=== PATIENT | female | born 1940 | race Two or more races ===

== ENCOUNTER 2023-09-06 15:27 | Inpatient (IN) | payer MEDICARE, MEDICAID ==
[~2023-09-06] VITALS: Ht 157.5 cm; Wt 50.3 kg
[2023-09-06 16:01] LABS: Basophils # (auto) 0.1 10 ^3/uL (0-0.2); Basophils % (auto) 0.8 % (0.0-2.0); Eosinophils # (auto) 0.1 10 ^3/uL (0-0.8); Eosinophils % (auto) 1.3 % (0.0-7.0); Hematocrit 37.6 % (36.0-46.0); Hemoglobin 12.7 g/dL (12.2-16.2); Lymphocytes # (auto) 1.8 10 ^3/uL (0.4-5.4); Lymphocytes % (auto) 22.6 % (10.0-50.0); Mean Corpuscular Hemoglobin 33.3 pg (28.0-32.0); Mean Corpuscular Hgb Conc. 33.9 g/dL (32.0-36.0); Mean Corpuscular Volume 98.3 fL (80.0-100.0); Monocytes # (auto) 0.4 10 ^3/uL (0-1.3); Monocytes % (auto) 5.3 % (0.0-12.0); Neutrophils # (auto) 5.6 10 ^3/uL (1.6-8.6); Nucleated Red Blood Cells % 0.2 %; Red Blood Cells 3.82 10^6/uL (4.0-5.20); Red Cell Distribution Width 14.5 % (11.8-14.3)
[2023-09-06 16:36] LABS: Alanine Aminotransferase 12 U/L (7-40); Albumin 4.6 g/dL (3.2-4.8); Alkaline Phosphatase 75 U/L (46-116); Anion Gap 11 (5-15); Aspartate Aminotransferase 19 U/L (13-40); BUN/Creatinine Ratio 7.1 (10.0-20.0); Blood Urea Nitrogen 6 mg/dL (9-23); Calcium 9.8 mg/dL (8.7-10.4); Carbon Dioxide 20 mmol/L (20-30); Chloride 106 mmol/L (98-107); Glucose 138 mg/dL (74-106); Potassium 3.5 mmol/L (3.5-5.1); Sodium 137 mmol/L (136-145)
[2023-09-06 16:37] LABS: Bilirubin, Total 0.7 mg/dL (0.2-1.0); Total Protein 7.8 g/dL (5.7-8.2)
[2023-09-06] MEDS ORDERED: ONDANSETRON HCL 4 MG/2 ML VIAL IV ONE ×2 (18:30→22:30)
[2023-09-06] MEDS ORDERED: MORPHINE SULFATE INJ 2 MG/ml SYRG IV ONE (18:30)
[2023-09-06] MEDS ORDERED: SODIUM CHLORIDE 0.9% 1,000 ML IV ONE (18:30)
[2023-09-06 19:30] VITALS: PULSE 63; RESP 18; O2SAT 100
[2023-09-06] MEDS ORDERED: ASPirin 81 mg TAB PO ONE (20:30)
[2023-09-06] MEDS ORDERED: ONDANSETRON ODT 4 MG TAB PO ONE (22:00)
[2023-09-06] MEDS ORDERED: MORPHINE SULFATE 4 MG/ML SYR/VIAL IV ONE (22:30)
[2023-09-06] MEDS ORDERED: ONDANSETRON HCL 4 MG/2 ML VIAL IV PRN (23:30)
[2023-09-06] MEDS ORDERED: HYDROcodone-ACET 5/325MG TAB PO PRN (23:30)
[2023-09-06] MEDS ORDERED: DOCUSATE SOD 100 MG CAP PO PRN (23:30)
[2023-09-06] MEDS ORDERED: MORPHINE SULFATE INJ 2 MG/ml SYRG IV PRN (23:30)
[2023-09-06] MEDS ORDERED: ACETAMINOPHEN 325 MG TAB PO PRN (23:30)
[2023-09-06] MEDS ORDERED: NITROGLYCERIN 0.4 MG SL TAB SL PRN (23:30)
[2023-09-07] MEDS ORDERED: ENOXAPARIN SOD 60 MG/0.6 ML SYRINGE SC ONE ×2 (00:30)
[2023-09-07] MEDS: SODIUM CHLORIDE 0.9% 1,000 ML IV SCH ×2 (00:55→16:33)
[2023-09-07 06:24] LABS: Basophils # (auto) 0 10 ^3/uL (0-0.2); Basophils % (auto) 0.6 % (0.0-2.0); Eosinophils # (auto) 0.1 10 ^3/uL (0-0.8); Eosinophils % (auto) 1.9 % (0.0-7.0); Hematocrit 31.6 % (36.0-46.0); Hemoglobin 10.9 g/dL (12.2-16.2); Lymphocytes # (auto) 1.5 10 ^3/uL (0.4-5.4); Mean Corpuscular Hemoglobin 33.1 pg (28.0-32.0); Mean Corpuscular Hgb Conc. 34.5 g/dL (32.0-36.0); Monocytes # (auto) 0.4 10 ^3/uL (0-1.3); Monocytes % (auto) 6.6 % (0.0-12.0); Neutrophils # (auto) 4.1 10 ^3/uL (1.6-8.6); Neutrophils % (auto) 66.9 % (37.0-80.0); Red Blood Cells 3.29 10^6/uL (4.0-5.20); Red Cell Distribution Width 14.4 % (11.8-14.3); White Blood Cell 6.1 10^3/uL (4.4-10.8)
[2023-09-07 06:36] LABS: Alanine Aminotransferase 82 U/L (7-40); Alkaline Phosphatase 105 U/L (46-116); BUN/Creatinine Ratio 9.7 (10.0-20.0); Blood Urea Nitrogen 7 mg/dL (9-23); Calcium 8.9 mg/dL (8.7-10.4); Carbon Dioxide 24 mmol/L (20-30); Glucose 100 mg/dL (74-106)
[2023-09-07 06:37] LABS: Aspartate Aminotransferase 107 U/L (13-40)
[2023-09-07 06:38] LABS: Albumin 3.8 g/dL (3.2-4.8); Bilirubin, Total 1.2 mg/dL (0.2-1.0); Total Protein 6.5 g/dL (5.7-8.2)
[2023-09-07 06:44] LABS: Anion Gap 7 (5-15); Chloride 109 mmol/L (98-107); Potassium 3.7 mmol/L (3.5-5.1); Sodium 140 mmol/L (136-145)
[2023-09-07 09:07] VITALS: PULSE 72; RESP 12; O2SAT 95
[2023-09-07] MEDS: ASPirin 81 mg TAB PO SCH (10:00)
[2023-09-07] MEDS ORDERED: FAMOTIDINE (10MG/ML) 2ML VL IV SCH (10:00)
[2023-09-07] MEDS: CARVEDILOL 3.125 MG TAB PO SCH ×2 (10:00→22:16)
[2023-09-07] MEDS ORDERED: CLOPIDOGREL BISULFATE 75 MG TAB PO SCH (11:00)
[2023-09-07 11:18] LABS: Triglycerides 108 mg/dL (< 150)
[2023-09-07 11:19] LABS: LDL Cholesterol 37 mg/dL (< 100)
[2023-09-07 11:20] LABS: Cholesterol 102 mg/dL (< 200); HDL Cholesterol 45 mg/dL (40-59)
[2023-09-07 11:59] LABS: Urine Amorphous Crystal FEW /hpf (None Seen); Urine Bacteria NONE SEEN /hpf (None Seen); Urine Blood Negative /uL (Negative); Urine Budding Yeast MANY /hpf (None Seen); Urine Clarity HAZY (Clear); Urine Color Yellow (Yellow); Urine Protein, UAD Negative (Negative); Urine Specific Gravity 1.013 (1.001-1.035); Urine Urobilinogen Normal (Negative); Urine WBC 86 /hpf (0 - 5)
[2023-09-07 19:25] VITALS: RESP 16; O2SAT 99
[2023-09-07] MEDS ORDERED: ATORVASTATIN 20 MG TAB PO SCH (22:00)
[2023-09-07] MEDS ORDERED: LORazepam 2MG/ML-1ML VIAL IV ONE (23:15)
[2023-09-07] MEDS ORDERED: diphenhdrAMINE HCL 50 MG/1 ML VL IV ONE (23:15)
[2023-09-07] MEDS ORDERED: LORazepam 2MG/ML-1ML VIAL IM ONE (23:30)
[2023-09-07] MEDS ORDERED: diphenhdrAMINE HCL 50 MG/1 ML VL IM ONE (23:30)
[2023-09-08] MEDS: levoFLOXacin 500 MG TAB PO SCH ×3 (06:13→10:19)
[2023-09-08] MEDS: SODIUM CHLORIDE 0.9% 1,000 ML IV SCH (09:17)
[2023-09-08] MEDS ORDERED: HALOPERIDOL LACTATE 5 MG/ML INJ VIAL IM PRN (09:45)
[2023-09-08] MEDS: ASPirin 81 mg TAB PO SCH (10:19)
[2023-09-08] MEDS: CARVEDILOL 3.125 MG TAB PO SCH (10:22)
[2023-09-08 11:29] LABS: Erythrocyte Sedimentation Rate 36 mm/hr (0-20)
[2023-09-08 11:38] LABS: Folate (Folic Acid) 11.2 ng/mL (>5.38)
[2023-09-08 11:39] LABS: Free T4 (Free Thyroxine) 1.2 ng/dL (0.89-1.76)
[2023-09-08] MEDS ORDERED: AMIL5TAB24 PO (11:46)
[2023-09-08] MEDS ORDERED: CARV12.544 PO (11:46)
[2023-09-08] MEDS ORDERED: NIFE1TAB30 PO (11:46)
[2023-09-08] MEDS ORDERED: ASPI-717 PO (11:46)
[2023-09-08] MEDS ORDERED: LOSA25TA15 PO (11:46)
[2023-09-08] MEDS ORDERED: LEVO75TA6 PO (11:46)
[2023-09-08] MEDS ORDERED: ATOR40TA52 PO (11:46)
[2023-09-08 12:38] VITALS: PULSE 78; RESP 18; O2SAT 97
[2023-09-08] MEDS: CARVEDILOL 12.5 MG TAB PO SCH ×2 (13:00→22:09)
[2023-09-08] MEDS ORDERED: hydrALAZINE HCL 20 MG/ML VL IV PRN (13:00)
[2023-09-08] MEDS: NIFEdipine ER 30 MG TAB PO SCH (13:00)
[2023-09-08 19:25] VITALS: PULSE 97; RESP 18; O2SAT 95
[2023-09-08 22:00] VITALS: BP 146/73; PULSE 89; RESP 18; TEMP 98.2; O2SAT 97
[2023-09-08 22:04] VITALS: BP_SYST 135; BP_SYST 146; BP_DIAS 67; BP_DIAS 73; PULSE 76; PULSE 89; RESP 16; RESP 18; TEMP 36.3; O2SAT 96; O2SAT 97
[2023-09-08] MEDS: ATORVASTATIN 20 MG TAB PO SCH (22:10)
[2023-09-09] VITALS (7 sets, daily range): BP systolic 110–129; BP diastolic 57–72; PULSE 73–82; RESP 16–19; TEMP 97.8–98.5; O2SAT 96–99
[2023-09-09] MEDS: LEVOTHYROXINE SODIUM 25 MCG TAB PO SCH (06:24)
[2023-09-09] MEDS: levoFLOXacin 500 MG TAB PO SCH (10:52)
[2023-09-09] MEDS: ASPirin 325 MG TAB PO SCH (10:52)
[2023-09-09] MEDS: CARVEDILOL 12.5 MG TAB PO SCH ×2 (10:53→22:20)
[2023-09-09] MEDS: NIFEdipine ER 30 MG TAB PO SCH (10:57)
[2023-09-09] MEDS ORDERED: LIDOCAINE VISCOUS 2% 15ML UD PO ONE (16:15)
[2023-09-09] MEDS ORDERED: fentaNYL CITRATE 100 MCG/2 ML VL IV ONE (16:15)
[2023-09-09] MEDS ORDERED: MIDAZOLAM HCL 2MG/2ML 2ml VIAL (1mg/ml) IV ONE (16:15)
[2023-09-09] MEDS ORDERED: NALOXONE HCL 0.4 MG/ML VIAL ONE (16:25)
[2023-09-09] MEDS ORDERED: FLUMAZENIL 0.1 MG/ML INJ 10ML MDV IV ONE (16:25)
[2023-09-09] MEDS: ATORVASTATIN 20 MG TAB PO SCH (22:19)
[2023-09-10 05:00] VITALS: BP 106/57; PULSE 79; RESP 17; TEMP 98.2; O2SAT 98
[2023-09-10] MEDS: LEVOTHYROXINE SODIUM 25 MCG TAB PO SCH (06:11)
[2023-09-10 08:00] VITALS: PULSE 78
[2023-09-10 09:00] VITALS: BP 99/50; PULSE 53; RESP 16; TEMP 98.1; O2SAT 98
[2023-09-10] MEDS: NIFEdipine ER 30 MG TAB PO SCH (10:00)
[2023-09-10] MEDS: CARVEDILOL 12.5 MG TAB PO SCH (10:00)
[2023-09-10] MEDS: levoFLOXacin 500 MG TAB PO SCH (10:24)
[2023-09-10] MEDS: ASPirin 325 MG TAB PO SCH (10:24)
[2023-09-10 13:00] VITALS: BP 121/63; PULSE 81; RESP 18; TEMP 97.8; O2SAT 98
== END 2023-09-10 17:18 | disposition left against medical advice (07) | DRG 64 ==
LOC: ER 15:27 → EDBD 15:27 → TELE 23:36 → UNDOADMIN 23:36 → TELE 23:47 → TELE-CENTR 09-08 21:49
PROVIDERS: ADMIT Nurse Practitioner Family; ATTEND Internal Medicine
PROC: B246ZZ4 Ultrasonography of Right and Left Heart, Transesophageal (ICD-10-PCS; principal; 2023-09-09)
DX: I63.9 Cerebral infarction, unspecified (principal); I21.A1 Myocardial infarction type 2; G81.94 Hemiplegia, unspecified affecting left nondominant side; Q21.12 Patent foramen ovale; I10 Essential (primary) hypertension; H53.462 Homonymous bilateral field defects, left side; E78.5 Hyperlipidemia, unspecified; E03.9 Hypothyroidism, unspecified; Z53.29 Procedure and treatment not carried out because of patient's decision for other reasons; Z79.82 Long term (current) use of aspirin; Z79.899 Other long term (current) drug therapy; Z82.49 Family history of ischemic heart disease and other diseases of the circulatory system
CPT/HCPCS: 36415; 70450; 70551; 71046; 80053; 80061; 81001; 82607; 82746; 83036; 83735; 83880; 84439; 84443; 84484; 85025; 85652; 86141; 93005; 93306; 93312; 93886; 93970; 93971; 95819; 96361; 96374; 97110; 97116; 97163; 97530; 99152; G0378; J2250; J2405; J3490; Q0162

== ENCOUNTER 2024-03-06 14:27 | Inpatient (IN) | payer MEDICARE, MEDICAID ==
[~2024-03-06] VITALS: Ht 157.5 cm; Wt 52.0 kg
[~2024-03-06 14:27] MED LIST: AMIL5TAB24 PO; ASPI-717 PO; ATOR40TA52 PO; CARV12.544 PO; LEVO75TA6 PO; LOSA-533 PO; NIFE1TAB30 PO
[2024-03-06 14:45] VITALS: PULSE 77; RESP 18; O2SAT 95
[2024-03-06 15:47] LABS: Basophils # (auto) 0 10 ^3/uL (0-0.2); Basophils % (auto) 0.5 % (0.0-2.0); Eosinophils # (auto) 0.1 10 ^3/uL (0-0.8); Hematocrit 39.9 % (36.0-46.0); Lymphocytes # (auto) 1.5 10 ^3/uL (0.4-5.4); Lymphocytes % (auto) 20.1 % (10.0-50.0); Mean Corpuscular Hemoglobin 31.3 pg (28.0-32.0); Mean Corpuscular Hgb Conc. 32.6 g/dL (32.0-36.0); Monocytes # (auto) 0.5 10 ^3/uL (0-1.3); Monocytes % (auto) 6.1 % (0.0-12.0); Neutrophils # (auto) 5.4 10 ^3/uL (1.6-8.6); Neutrophils % (auto) 72.3 % (37.0-80.0); Nucleated Red Blood Cells % 0.4 %; Red Blood Cells 4.15 10^6/uL (4.0-5.20); Red Cell Distribution Width 15.3 % (11.8-14.3); White Blood Cell 7.4 10^3/uL (4.4-10.8)
[2024-03-06 16:00] LABS: INR 1.02 (0.9-1.15); Partial Thromboplastin Time 25.3 SEC (24.5-34.5); Prothrombin Time 10.8 sec (9.3-11.8)
[2024-03-06 16:03] LABS: Alanine Aminotransferase 11 U/L (7-40); Alkaline Phosphatase 93 U/L (46-116); Anion Gap 7 (5-15); Aspartate Aminotransferase 14 U/L (13-40); Blood Urea Nitrogen 16 mg/dL (9-23); Calcium 10.2 mg/dL (8.7-10.4); Carbon Dioxide 24 mmol/L (20-30); Chloride 109 mmol/L (98-107); Glucose 122 mg/dL (74-106); Magnesium 1.9 mg/dL (1.6-2.6); Potassium 4.6 mmol/L (3.5-5.1); Sodium 140 mmol/L (136-145)
[2024-03-06 16:04] LABS: Albumin 3.9 g/dL (3.2-4.8); Bilirubin, Total 0.6 mg/dL (0.2-1.0); Total Protein 6.8 g/dL (5.7-8.2)
[2024-03-06] MEDS ORDERED: MORPHINE SULFATE INJ 2 MG/ml SYRG IV PRN (18:45)
[2024-03-06] MEDS ORDERED: ACETAMINOPHEN 325 MG TAB PO PRN (18:45)
[2024-03-06] MEDS ORDERED: NITROGLYCERIN 0.4 MG SL TAB SL PRN (18:45)
[2024-03-06] MEDS: SODIUM CHLORIDE 0.9% 1,000 ML IV SCH (19:04)
[2024-03-06] MEDS: ASPirin 325 MG TAB PO ONE (19:04)
[2024-03-06 19:18] LABS: Triglycerides 138 mg/dL (< 150)
[2024-03-06 19:19] LABS: LDL Cholesterol 57 mg/dL (< 100)
[2024-03-06 19:20] LABS: Cholesterol 128 mg/dL (< 200); HDL Cholesterol 49 mg/dL (40-59)
[2024-03-06 19:25] VITALS: PULSE 72; RESP 19; O2SAT 95
[2024-03-06 21:30] VITALS: BP 120/61; PULSE 81; RESP 16; TEMP 97.8
[2024-03-06 21:45] VITALS: BP 120/61; PULSE 81; RESP 16; TEMP 97.8; O2SAT 98
[2024-03-06 21:50] VITALS: BP 117/65; PULSE 96; O2SAT 98
[2024-03-06 21:55] VITALS: BP 106/55; PULSE 76
[2024-03-06] MEDS: CARVEDILOL 12.5 MG TAB PO SCH (22:00)
[2024-03-06] MEDS: ATORVASTATIN 20 MG TAB PO SCH (22:01)
[2024-03-06] MEDS ORDERED: LORazepam 2MG/ML-1ML VIAL IV PRN (23:30)
[2024-03-06 23:33] LABS: Urine Bacteria None Seen /hpf (None Seen)
[2024-03-06 23:43] LABS: Urine Blood Negative /uL (Negative); Urine Clarity Turbid (Clear); Urine Color Colorless (Yellow); Urine Protein, UAD Negative (Negative); Urine Specific Gravity 1.012 (1.001-1.035); Urine Urobilinogen Normal (Negative); Urine WBC 4 /hpf (0 - 5)
[2024-03-07] VITALS (10 sets, daily range): BP systolic 94–120; BP diastolic 52–76; PULSE 60–81; RESP 15–19; TEMP 97.5–98.2; O2SAT 94–100
[2024-03-07 05:33] LABS: Basophils # (auto) 0 10 ^3/uL (0-0.2); Basophils % (auto) 0.7 % (0.0-2.0); Eosinophils # (auto) 0.1 10 ^3/uL (0-0.8); Eosinophils % (auto) 2.6 % (0.0-7.0); Hematocrit 32.3 % (36.0-46.0); Hemoglobin 10.7 g/dL (12.2-16.2); Lymphocytes # (auto) 1.8 10 ^3/uL (0.4-5.4); Lymphocytes % (auto) 35.1 % (10.0-50.0); Mean Corpuscular Hemoglobin 31.5 pg (28.0-32.0); Mean Corpuscular Hgb Conc. 33.2 g/dL (32.0-36.0); Mean Corpuscular Volume 95.1 fL (80.0-100.0); Monocytes # (auto) 0.4 10 ^3/uL (0-1.3); Monocytes % (auto) 8.1 % (0.0-12.0); Neutrophils # (auto) 2.7 10 ^3/uL (1.6-8.6); Neutrophils % (auto) 53.5 % (37.0-80.0); Nucleated Red Blood Cells % 0.1 %; Red Cell Distribution Width 14.9 % (11.8-14.3); White Blood Cell 5.1 10^3/uL (4.4-10.8)
[2024-03-07 05:50] LABS: Albumin 3.3 g/dL (3.2-4.8); Alkaline Phosphatase 74 U/L (46-116); Anion Gap 8 (5-15); Aspartate Aminotransferase 11 U/L (13-40); BUN/Creatinine Ratio 13.8 (10.0-20.0); Blood Urea Nitrogen 11 mg/dL (9-23); Calcium 9.4 mg/dL (8.7-10.4); Carbon Dioxide 21 mmol/L (20-30); Chloride 111 mmol/L (98-107); Glucose 103 mg/dL (74-106); Potassium 3.6 mmol/L (3.5-5.1); Sodium 140 mmol/L (136-145)
[2024-03-07 05:51] LABS: Bilirubin, Total 0.6 mg/dL (0.2-1.0)
[2024-03-07 05:59] LABS: Alanine Aminotransferase < 9 U/L (7-40)
[2024-03-07] MEDS: LEVOTHYROXINE SODIUM 25 MCG TAB PO SCH (06:27)
[2024-03-07] MEDS: LEVOTHYROXINE SODIUM 50 MCG TAB PO SCH (06:27)
[2024-03-07] MEDS: NIFEdipine ER 30 MG TAB PO SCH (09:51)
[2024-03-07] MEDS: ENOXAPARIN SOD 40 MG/0.4 ML SYRINGE SC SCH (09:52)
[2024-03-07] MEDS: ASPirin 81 mg TAB PO SCH (09:53)
[2024-03-07] MEDS: LOSARTAN POTASSIUM 25 MG TAB PO SCH (09:53)
[2024-03-07] MEDS ORDERED: PATIENTS OWN MEDICATION (Levothyroxine Sodium 1 TAB) PO SCH (10:00)
[2024-03-08] VITALS (8 sets, daily range): BP systolic 102–113; BP diastolic 50–58; PULSE 66–83; RESP 16–21; TEMP 97.9–98.9; O2SAT 95–100
[2024-03-08 05:44] LABS: Basophils # (auto) 0 10 ^3/uL (0-0.2); Basophils % (auto) 0.9 % (0.0-2.0); Eosinophils # (auto) 0.2 10 ^3/uL (0-0.8); Eosinophils % (auto) 2.9 % (0.0-7.0); Hematocrit 33.7 % (36.0-46.0); Hemoglobin 11.4 g/dL (12.2-16.2); Lymphocytes # (auto) 1.8 10 ^3/uL (0.4-5.4); Lymphocytes % (auto) 32.8 % (10.0-50.0); Mean Corpuscular Hemoglobin 31.4 pg (28.0-32.0); Mean Corpuscular Hgb Conc. 33.7 g/dL (32.0-36.0); Mean Corpuscular Volume 93.1 fL (80.0-100.0); Monocytes # (auto) 0.4 10 ^3/uL (0-1.3); Monocytes % (auto) 7.5 % (0.0-12.0); Neutrophils % (auto) 55.9 % (37.0-80.0); Red Blood Cells 3.62 10^6/uL (4.0-5.20); Red Cell Distribution Width 14.5 % (11.8-14.3); White Blood Cell 5.4 10^3/uL (4.4-10.8)
[2024-03-08 05:59] LABS: Albumin 3.3 g/dL (3.2-4.8); Alkaline Phosphatase 69 U/L (46-116); Anion Gap 5 (5-15); BUN/Creatinine Ratio 14.1 (10.0-20.0); Bilirubin, Total 0.9 mg/dL (0.2-1.0); Blood Urea Nitrogen 12 mg/dL (9-23); Calcium 9.5 mg/dL (8.7-10.4); Carbon Dioxide 24 mmol/L (20-30); Chloride 111 mmol/L (98-107); Glucose 94 mg/dL (74-106); Potassium 3.7 mmol/L (3.5-5.1); Sodium 140 mmol/L (136-145)
[2024-03-08 06:24] LABS: Alanine Aminotransferase < 9 U/L (7-40)
[2024-03-08 06:32] LABS: Aspartate Aminotransferase 11 U/L (13-40)
[2024-03-08] MEDS ORDERED: POTA-220 PO (13:51)
[2024-03-09] VITALS (7 sets, daily range): BP systolic 108–124; BP diastolic 43–69; PULSE 67–79; RESP 16–20; TEMP 97.4–98.3; O2SAT 95–97
[2024-03-09 06:34] LABS: Basophils # (auto) 0 10 ^3/uL (0-0.2); Basophils % (auto) 0.6 % (0.0-2.0); Eosinophils # (auto) 0.2 10 ^3/uL (0-0.8); Eosinophils % (auto) 3.1 % (0.0-7.0); Hematocrit 36.5 % (36.0-46.0); Hemoglobin 12.4 g/dL (12.2-16.2); Lymphocytes # (auto) 1.9 10 ^3/uL (0.4-5.4); Lymphocytes % (auto) 24.9 % (10.0-50.0); Mean Corpuscular Hemoglobin 31.5 pg (28.0-32.0); Mean Corpuscular Hgb Conc. 33.9 g/dL (32.0-36.0); Mean Corpuscular Volume 93.1 fL (80.0-100.0); Monocytes # (auto) 0.5 10 ^3/uL (0-1.3); Monocytes % (auto) 7.1 % (0.0-12.0); Neutrophils # (auto) 4.8 10 ^3/uL (1.6-8.6); Neutrophils % (auto) 64.3 % (37.0-80.0); Nucleated Red Blood Cells % 0.1 %; Red Blood Cells 3.92 10^6/uL (4.0-5.20); Red Cell Distribution Width 14.7 % (11.8-14.3); White Blood Cell 7.5 10^3/uL (4.4-10.8)
[2024-03-09 06:48] LABS: Anion Gap 7 (5-15); Carbon Dioxide 22 mmol/L (20-30); Chloride 110 mmol/L (98-107); Potassium 3.2 mmol/L (3.5-5.1); Sodium 139 mmol/L (136-145)
[2024-03-09 06:49] LABS: Calcium 9.6 mg/dL (8.5-10.1)
[2024-03-09 06:54] LABS: BUN/Creatinine Ratio 12.7 (10.0-20.0); Blood Urea Nitrogen 9 mg/dL (9-23); Glucose 94 mg/dL (74-106)
[2024-03-09] MEDS: POTASSIUM EFFERVESENT TAB 25 MEQ PO ONE (09:59)
[2024-03-09] MEDS ORDERED: ASPI-325 PO (10:09)
== END 2024-03-09 17:00 | disposition home or self-care (01) | DRG 281 ==
LOC: EDBD 14:27 → ER 14:27 → TELE 18:42 → TELE-WESTW 21:33
PROVIDERS: ADMIT Internal Medicine; ATTEND Emergency Medicine
DX: R55 Syncope and collapse (principal); I69.354 Hemiplegia and hemiparesis following cerebral infarction affecting left non-dominant side; I21.A1 Myocardial infarction type 2; N39.0 Urinary tract infection, site not specified; Q21.12 Patent foramen ovale; H53.462 Homonymous bilateral field defects, left side; E03.9 Hypothyroidism, unspecified; G93.0 Cerebral cysts; F17.200 Nicotine dependence, unspecified, uncomplicated; E78.5 Hyperlipidemia, unspecified; E86.0 Dehydration; Z90.49 Acquired absence of other specified parts of digestive tract; Z79.899 Other long term (current) drug therapy; Z79.82 Long term (current) use of aspirin; Z90.710 Acquired absence of both cervix and uterus; Z82.49 Family history of ischemic heart disease and other diseases of the circulatory system
CPT/HCPCS: 36415; 70450; 70551; 71045; 80048; 80053; 80061; 81001; 83735; 84443; 84484; 85025; 85610; 85730; 93005; 93886; 97110; 97116; 97163; 97530; G0378

== ENCOUNTER 2024-09-11 13:35 | Emergency (ER) | payer MEDICARE, MEDICAID ==
[~2024-09-11] VITALS: Ht 157.5 cm; Wt 59.0 kg
[~2024-09-11 13:35] MED LIST changes: +ASPI-325 PO; -CARV12.544 PO; -LOSA-533 PO; +POTA-220 PO
--- NOTE | 2024-09-11 14:55 | ED.PDOC ---
History of Present Illness HPI Comments 83y F who presents to the ED via EMS for chief complaint of near syncope. Pt states she was getting out of wheelchair to use restroom and states her legs gave out and pt fell to the floor. Pt denies any associated loss of consciousness and no noted injury after fall. 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 Pt in the ED is alert and oriented x 4 and able to answer all questions. Pt otherwise denies headache, dizziness, chest pain or shortness of breath. Pt in the ED, noted to have low BP of 96/40 after multiple readings performed in the ED. Pt otherwise denies any other symptoms at this time. Chief Complaint: Low Blood Pressure Time Seen by MD: 14:52 Primary Care Provider: BALWINDER Ha Notes: Medications, Allergies Allergies: Coded Allergies: NO KNOWN ALLERGIES (Unverified , 09/06/23) Home Meds Active Scripts Aspirin (Aspirin Low Dose) 81 Mg Tab, 81 MG PO DAILY for 90 Days, #90 TAB 3 Refills Prov:KAVITHA REDDING RESIDENT 03/09/24 Reported Medications Potassium Chloride (Klor-Con M20) 20 Meq Tab, 1 TAB PO DAILY 03/08/24 Levothyroxine Sodium (Levothyroxine Sodium) 75 Mcg Tab, 1 TAB PO DAILY, #30 TAB 5 Refills 09/08/23 Atorvastatin Calcium (ATORVASTATIN CALCIUM) 40 Mg Tab, 1 TAB PO DAILY, #30 TAB 5 Refills 09/08/23 Nifedipine (Nifedipine Er) 60 Mg Tab, 1 TAB PO DAILY, #30 TAB 5 Refills 09/08/23 Amiloride HCl (Amiloride Hydrochloride) 5 Mg Tab, 5 MG PO, TAB 09/08/23 Aspirin Buffered (Paramjit Carb-Mag (Aspirin 325 mg) 1 Tab Tab, 1 TAB PO, TAB 09/08/23 Information Source: Patient, Emergency Med Personnel Mode of Arrival: EMS Past Medical History PAST MEDICAL HISTORY: CVA, High Lipids, HTN, Thyroid Surgical History: Cholecystectomy, Hysterectomy INCIDENT COMMANDER History: No Pertinent INCIDENT COMMANDER History Family History Family History: Reviewed,noncontributory to illness, Unknown Social History Smoker: Non-Smoker Alcohol: Denies ETOH Use, Sober Drugs: Denies Drug Use Lives In: Home Constitutional: reports: malaise, weakness; denies: chills, diaphoresis, fatigue, fever, sweats, others EENTM: denies: blurred vision, double vision, ear bleeding, ear discharge, ear drainage, ear pain, ear ringing, eye pain, eye redness, hearing loss, mouth pain, mouth swelling, nasal discharge, nose bleeding, nose congestion, nose pain, photophobia, tearing, throat pain, throat swelling, voice changes, others Respiratory: denies: cough, hemoptysis, orthopnea, SOB at rest, shortness of breath, SOB with excertion, stridor, wheezing, others Cardiovascular: denies: chest pain, dizzy spells, diaphoresis, Dyspnea on exertion, edema, irregular heart beat, left arm pain, lightheadedness, palpitations, PND, syncope, others Gastrointestinal: denies: abdomen distended, abdominal pain, blood streaked bowels, constipated, diarrhea, dysphagia, difficulty swallowing, hematemesis, melena, nausea, poor appetite, poor fluid intake, rectal bleeding, rectal pain, vomiting, others Genitourinary: denies: abnormal vagina bleeding, burning, dyspareunia, dysuria, flank pain, frequency, hematuria, incontinence, pain, , vagina discharge, urgency, others Neurological: denies: dizziness, fainting, headache, left sided numbness, left sided weakness, numbness, paresthesia, pre-existing deficit, right sided numbness, right sided weakness, seizure, speech problems, tingling, tremors, weakness, others Musculoskeletal: denies: back pain, gout, joint pain, joint swelling, muscle pain, muscle stiffness, neck pain, others Integumetry: denies: bruises, change in color, change in hair/nails, dryness, laceration, lesions, lumps, rash, wounds, others Allergic/Immunocompromised: denies: Difficulty Healing, Frequent Infections, H tricia, Itching, others Hematologic/Lymphatic: denies: anemia, blood clots, easy bleeding, easy bruising, swollen glands, others Endocrine: denies: excessive hunger, excessive sweating, excessive thirst, excessive urination, flushing, intolerance to cold, intolerance to heat, unexplained weight gain, unexplained weight loss, others Psychiatric: denies: anxiety, bipolar disorder, depression, hopeless, panic disorder, schizophrenia, sleepless, suicidal, others All Other Systems: Reviewed and Negative Physical Exam General Appearance: Other (L ) HEENT: Normal ENT Inspection, Pharynx Normal, TMs Normal Neck: Full Range of Motion, Non-Tender, Normal, Normal Inspection Respiratory: Chest Non-Tender, Lungs Clear, No Accessory Muscle Use, No Respiratory Distress, Normal Breath Sounds Cardiovascular: No Edema, No JVD, No Murmur, No Gallop, Normal Peripheral Pulses, Regular Rate/Rhythm Breast Exam: Deferred Gastrointestinal: No Organomegaly, Non Tender, No Pulsatile Mass, Normal Bowel Sounds, Soft Genitalia: Deferred Pelvic: Deferred Rectal: Deferred Extremities: No calf tenderness, Normal capillary refill, Normal inspection, Normal range of motion, Non-tender, No pedal edema Musculoskeletal : Apperance: Normal Neurologic: Other (L sided weakness, contractures on L side from prior CVA) Cerebellar Function: Normal Reflexes: Normal Skin: Dry, Normal Color, Warm Lymphatic: No Adenopathy Was a procedure done? Was a procedure done?: No Differential Dx Considerations may include: hypotension, malaise, UTI, fall injury, X-Ray, Labs, Meds, VS Vital Signs Date Time Temp Pulse Resp B/P (MAP) Pulse Ox O2 Delivery O2 Flow Rate FiO2 09/11/24 15:59 97.9 76 16 104/55 (71) 97 97.9 09/11/24 14:54 76 09/11/24 14:00 98.0 79 18 94/42 (59) 98 98.0 96/40 (58) 09/11/24 13:41 98.4 75 18 96/52 (67) 95 Lab Test 09/11/24 14:49 Range/Units White Blood Count 8.5 4.4-10.8 10^3/uL Red Blood Count 4.24 4.0-5.20 10^6/uL Hemoglobin 13.5 12.2-16.2 g/dL Hematocrit 40.0 36.0-46.0 % Mean Corpuscular Volume 94.3 80.0-100.0 fL Mean Corpuscular Hemoglobin 31.9 28.0-32.0 pg Mean Corpuscular Hemoglobin Concent 33.8 32.0-36.0 g/dL Red Cell Distribution Width 14.7 H 11.8-14.3 % Platelet Count 261 140-450 10^3/uL Mean Platelet Volume 7.3 6.9-10.8 fL Neutrophils (%) (Auto) 37.0-80.0 % Lymphocytes (%) (Auto) 10.0-50.0 % Monocytes (%) (Auto) 0.0-12.0 % Basophils (%) (Auto) 0.0-2.0 % Neutrophils # (Auto) 1.6-8.6 10 ^3/uL Lymphocytes # (Auto) 0.4-5.4 10 ^3/uL Monocytes # (Auto) 0-1.3 10 ^3/uL Differential Total Cells Counted 100.0 100 Neutrophils % (Manual) 83 H 37.0-80.0 Band Neutrophils % (Manual) 7 Lymphocytes % (Manual) 4 L 10.0-50.0 Monocytes % (Manual) 6 0-12 Eosinophils % (Manual) 0 0-7 Basophils % (Manual) 0 0.0-2.0 Metamyelocytes % (manual) 0 Myelocytes % (Manual) 0 Promyelocytes % (Manual) 0 Blast Cells % (Manual) 0 Reactive Lymphocytes 0 Platelet Estimate Adequate Red Blood Cell Morphology Normal Sodium Level 140 136-145 mmol/L Potassium Level 3.5 3.5-5.1 mmol/L Chloride Level 108 H 98-107 mmol/L Carbon Dioxide Level 21 20-31 mmol/L Anion Gap 11 5-15 Blood Urea Nitrogen 16 9-23 mg/dL Creatinine 0.98 0.550-1.02 mg/dL Glomerular Filtration Rate Calc 57 >90 mL/min BUN/Creatinine Ratio 16.3 10.0-20.0 Serum Glucose 135 H 74-106 mg/dL Calcium Level 10.0 8.7-10.4 mg/dL Troponin I High Sensitivity 20 </=34 ng/L Time of 1ST Reevaluation: 15:30 Reevaluation 1ST: Resolved Time of 2ND Reevaluation: 17:11 Reevaluation 2ND: Resolved Patient Education/Counseling: Diagnosis, Treatment Family Education/Counseling: No Family Present Additional Information pt had: no prior external notes the following tests were ordered in the ED: CBC, BMP, EKGx1,tropininx1 independent historians: EMS, reviewed and agreed with results interpreted by independent provider: none results and treatments performed in the ED were discussed with: patient and medical personnel pt denies all symptoms. her BP has been labile, but pt reports her BP is always "up and down" and she has no symptoms even while her sbp is in the 90s Departure 1 Departure Time of Disposition: 17:12 Impression: Primary Impression: Falling Disposition: 01 HOME / SELF CARE / HOMELESS Condition: Good Discharged With: Self Critical Care Note Critical Care Time?: No Stability Stability form required: No Heart Score Heart Score: Heart Score Response (Comments) Value History N/A 0 EKG N/A 0 Age N/A 0 Risk Factors N/A 0 Troponin N/A 0 Total 0 I personally scribed for SEAN JAMESON MD ([facility]) on 09/11/24 at 14:55. Electronically submitted by Venu Campbell ([facility] I personally scribed for SEAN [facility]AMESON [facility] ([facility] on 09/11/24 at 15:07. Electronically submitted by Venu Campbell ([facility] SEAN JAMESON MD Sep 11, 2024 14:55
[2024-09-11 15:07] LABS: Hemoglobin 13.5 g/dL (12.2-16.2); Mean Corpuscular Hemoglobin 31.9 pg (28.0-32.0); Mean Corpuscular Hgb Conc. 33.8 g/dL (32.0-36.0); Mean Corpuscular Volume 94.3 fL (80.0-100.0); Platelet Count (auto) 261 10^3/uL (140-450); Red Blood Cells 4.24 10^6/uL (4.0-5.20); Red Cell Distribution Width 14.7 % (11.8-14.3); White Blood Cell 8.5 10^3/uL (4.4-10.8)
[2024-09-11 15:10] LABS: Chloride 108 mmol/L (98-107); Potassium 3.5 mmol/L (3.5-5.1); Sodium 140 mmol/L (136-145)
[2024-09-11 15:11] LABS: Anion Gap 11 (5-15); Carbon Dioxide 21 mmol/L (20-31)
[2024-09-11 15:16] LABS: BUN/Creatinine Ratio 16.3 (10.0-20.0); Blood Urea Nitrogen 16 mg/dL (9-23); Glucose 135 mg/dL (74-106)
[2024-09-11 15:26] LABS: Basophils % (manual) 0 (0.0-2.0); Blast Cells 0; Eosinophils % (manual) 0 (0-7); Metamyelocytes % 0; Myelocytes % 0; Promyelocytes % 0; Reactive Lymphocytes 0
--- NOTE | 2024-09-11 15:49 | ECG ---
[facility] Test Date: 2024-09-11 Test Time: 14:54:50 Pat Name: KATHI PRIEST Department: ER Room: Gender: F Head Concierge: KAMERON : 1940 Requested By: SEAN JAMESON Order Number: [id number] Reading MD: Guanakito Oh Measurements Intervals Chicken Rate: 76 P: -16 OK: 185 QRS: -17 QRSD: 80 T: 22 QT: 367 QTc: 413 Interpretive Statements Sinus rhythm Borderline left axis deviation Abnormal R-wave progression, early transition Electronically Signed On 09-14-2024 8:22:43 PST by Guanakito Oh Please click the below link to view image of tracing.
[2024-09-11 15:59] VITALS: BP 104/55; PULSE 76; RESP 16; TEMP 97.9; O2SAT 97
[2024-09-11 16:06] LABS: Band Neutrophils % (manual) 7; Lymphocytes % (manual) 4 (10.0-50.0); Monocytes % (manual) 6 (0-12)
[2024-09-11 16:07] LABS: Platelet Estimate Adequate; RBC Morphology Normal
== END 2024-09-11 17:44 | disposition home or self-care (01) ==
LOC: EDBD 13:35 → ER 13:35
DX: R55 Syncope and collapse (principal); E78.5 Hyperlipidemia, unspecified; I10 Essential (primary) hypertension; E03.9 Hypothyroidism, unspecified; Z79.899 Other long term (current) drug therapy; Z79.84 Long term (current) use of oral hypoglycemic drugs; Z90.49 Acquired absence of other specified parts of digestive tract; Z90.710 Acquired absence of both cervix and uterus; W18.39XA Other fall on same level, initial encounter; Y93.89 Activity, other specified; Y92.89 Other specified places as the place of occurrence of the external cause; Y99.8 Other external cause status
CPT/HCPCS: 36415; 80048; 84484; 85007; 85027; 93005

== ENCOUNTER 2025-03-29 09:25 | Inpatient (IN) | payer MEDICARE, MEDICAID ==
[~2025-03-29] VITALS: Ht 149.9 cm; Wt 52.2 kg
--- NOTE | 2025-03-29 09:41 | ED.PDOC ---
Back pain HPI HPI Comments 84 y/o F, BIBA, with PMHx of VA, HLD, and HTN presents to the ED for CC of bilateral leg pain. EMS reports, patient is coming from [facility] where she complains of bilateral leg pain with associated weakness x1week. EMS relays, patient has been seen at [facility] for symptoms 3x in the last week and has been departed during all visits. Patient endorses, previous left sided deficit from prior CVA x1year ago; patient has limited mobility. Patient denies recent trauma, injury, or fall. No other symptoms or modifying factors present at this time. Time Seen by MD: 09:35 Primary Care Provider: BALWINDER Ha Notes: Nurses Notes, Cementing Bulk Material Operator Notes, Medications, Allergies Allergies: Coded Allergies: NO KNOWN ALLERGIES (Unverified , 09/06/23) Home Meds Active Scripts Aspirin (Aspirin Low Dose) 81 Mg Tab, 81 MG PO DAILY for 90 Days, #90 TAB 3 Refills Prov:KAVITHA REDDING RESIDENT 03/09/24 Reported Medications Potassium Chloride (Klor-Con M20) 20 Meq Tab, 1 TAB PO DAILY 03/08/24 Levothyroxine Sodium (Levothyroxine Sodium) 75 Mcg Tab, 1 TAB PO DAILY, #30 TAB 5 Refills 09/08/23 Atorvastatin Calcium (ATORVASTATIN CALCIUM) 40 Mg Tab, 1 TAB PO DAILY, #30 TAB 5 Refills 09/08/23 Nifedipine (Nifedipine Er) 60 Mg Tab, 1 TAB PO DAILY, #30 TAB 5 Refills 09/08/23 Amiloride HCl (Amiloride Hydrochloride) 5 Mg Tab, 5 MG PO, TAB 09/08/23 Aspirin Buffered (Paramjit Carb-Mag (Aspirin 325 mg) 1 Tab Tab, 1 TAB PO, TAB 09/08/23 Information Source: Patient, Emergency Med Personnel Mode of Arrival: EMS Timing: Weeks Duration: Since onset Location of Back pain: Other Radiates to: Anterior: Other Radiates to: Posterior: Other Radiates to: Lateral: Other Severity: Moderate Prehospital treatment: None Onset: Spontaneous History of: None Modifying Factors: Nothing Associated signs and symptoms: None Past Medical History PAST MEDICAL HISTORY: CVA, High Lipids, HTN, Thyroid Surgical History: Cholecystectomy, Hysterectomy THICKENER OPERATOR History: No Pertinent THICKENER OPERATOR History Family History Family History: Reviewed,noncontributory to illness, Unknown Social History Smoker: Non-Smoker Alcohol: Denies ETOH Use, Sober Drugs: Denies Drug Use Lives In: Home Constitutional: reports: weakness; denies: chills, diaphoresis, fatigue, fever, malaise, sweats, others EENTM: denies: blurred vision, double vision, ear bleeding, ear discharge, ear drainage, ear pain, ear ringing, eye pain, eye redness, hearing loss, mouth pain, mouth swelling, nasal discharge, nose bleeding, nose congestion, nose pain, photophobia, tearing, throat pain, throat swelling, voice changes, others Respiratory: denies: cough, hemoptysis, orthopnea, SOB at rest, shortness of breath, SOB with excertion, stridor, wheezing, others Cardiovascular: denies: chest pain, dizzy spells, diaphoresis, Dyspnea on exertion, edema, irregular heart beat, left arm pain, lightheadedness, palpitations, PND, syncope, others Gastrointestinal: denies: abdomen distended, abdominal pain, blood streaked bowels, constipated, diarrhea, dysphagia, difficulty swallowing, hematemesis, melena, nausea, poor appetite, poor fluid intake, rectal bleeding, rectal pain, vomiting, others Genitourinary: denies: abnormal vagina bleeding, burning, dyspareunia, dysuria, flank pain, frequency, hematuria, incontinence, pain, , vagina discharge, urgency, others Neurological: denies: dizziness, fainting, headache, left sided numbness, left sided weakness, numbness, paresthesia, pre-existing deficit, right sided numbness, right sided weakness, seizure, speech problems, tingling, tremors, weakness, others Musculoskeletal: reports: others (leg pain); denies: back pain, gout, joint pain, joint swelling, muscle pain, muscle stiffness, neck pain Integumetry: denies: bruises, change in color, change in hair/nails, dryness, laceration, lesions, lumps, rash, wounds, others Allergic/Immunocompromised: denies: Difficulty Healing, Frequent Infections, Hives, Itching, others Hematologic/Lymphatic: denies: anemia, blood clots, easy bleeding, easy bruising, swollen glands, others Endocrine: denies: excessive hunger, excessive sweating, excessive thirst, excessive urination, flushing, intolerance to cold, intolerance to heat, unexplained weight gain, unexplained weight loss, others Psychiatric: denies: anxiety, bipolar disorder, depression, hopeless, panic disorder, schizophrenia, sleepless, suicidal, others All Other Systems: Reviewed and Negative Physical Exam General Appearance: No Apparent Distress, Normal, Other (chronic ill apperaing) HEENT: Normal ENT Inspection, Pharynx Normal Neck: Full Range of Motion, Non-Tender, Normal, Normal Inspection Respiratory: Chest Non-Tender, Lungs Clear, No Accessory Muscle Use, No Respiratory Distress, Normal Breath Sounds Cardiovascular: No Edema, No Murmur, No Gallop, Normal Peripheral Pulses, Regular Rate/Rhythm Breast Exam: Deferred Gastrointestinal: No Organomegaly, Non Tender, No Pulsatile Mass, Normal Bowel Sounds, Soft Genitalia: Deferred Pelvic: Deferred Rectal: Deferred Extremities: No calf tenderness, Normal capillary refill, Normal inspection, Normal range of motion, Non-tender, No pedal edema Musculoskeletal : Apperance: Normal Neurologic: foreman/pile driving and erection II-XII nml as Tested, No Motor Deficits, No Sensory Deficits, Other (pleasently confused) Cerebellar Function: Normal Reflexes: Normal Skin: Dry, Normal Color, Warm Lymphatic: No Adenopathy Was a procedure done? Was a procedure done?: No Back Pain Differential Dx Differential Diagnosis: Musculoskeletal Pain, Strain X-Ray, Labs, Meds, VS Vital Signs Date Time Temp Pulse Resp B/P (MAP) Pulse Ox O2 Delivery O2 Flow Rate FiO2 03/29/25 10:02 76 16 125/74 (91) 95 03/29/25 10:02 Room Air* 0 21 03/29/25 09:36 72 03/29/25 09:33 98.3 84 18 146/73 (97) 97 98.3 Lab Test 03/29/25 09:41 Range/Units White Blood Count 7.2 4.4-10.8 10^3/uL Red Blood Count 4.40 4.0-5.20 10^6/uL Hemoglobin 13.9 12.2-16.2 g/dL Hematocrit 41.1 36.0-46.0 % Mean Corpuscular Volume 93.5 80.0-100.0 fL Mean Corpuscular Hemoglobin 31.7 28.0-32.0 pg Mean Corpuscular Hemoglobin Concent 33.9 32.0-36.0 g/dL Red Cell Distribution Width 16.3 H 11.8-14.3 % Platelet Count 276 140-450 10^3/uL Mean Platelet Volume 7.9 6.9-10.8 fL Neutrophils (%) (Auto) 71.7 37.0-80.0 % Lymphocytes (%) (Auto) 20.0 10.0-50.0 % Monocytes (%) (Auto) 4.7 0.0-12.0 % Eosinophils (%) (Auto) 2.8 0.0-7.0 % Basophils (%) (Auto) 0.8 0.0-2.0 % Neutrophils # (Auto) 5.2 1.6-8.6 10 ^3/uL Lymphocytes # (Auto) 1.4 0.4-5.4 10 ^3/uL Monocytes # (Auto) 0.3 0-1.3 10 ^3/uL Eosinophils # (Auto) 0.2 0-0.8 10 ^3/uL Basophils # (Auto) 0.1 0-0.2 10 ^3/uL Nucleated Red Blood Cells 0.0 % Sodium Level 143 136-145 mmol/L Potassium Level 5.0 3.5-5.1 mmol/L Chloride Level 113 H 98-107 mmol/L Carbon Dioxide Level 21 20-31 mmol/L Anion Gap 9 5-15 Blood Urea Nitrogen 11 9-23 mg/dL Creatinine 0.83 0.550-1.02 mg/dL Glomerular Filtration Rate Calc 69 >90 mL/min BUN/Creatinine Ratio 13.3 10.0-20.0 Serum Glucose 101 74-106 mg/dL Calcium Level 10.2 8.7-10.4 mg/dL Troponin I High Sensitivity 247 *H </=34 ng/L Time of 1ST Reevaluation: 10:05 Reevaluation 1ST: Unchanged Patient Education/Counseling: Diagnosis, Treatment Family Education/Counseling: No Family Present Departure 1 Departure Time of Disposition: 10:26 (Patient's worsening weakness found to have an elevated troponin. We will admit patient for further workup and expert consultation) Impression: Primary Impression: Elevated troponin Additional Impressions: Generalized weakness Shortness of breath Disposition: ADMITTED INPATIENT Admit to: Tele Condition: Guarded Critical Care Note Critical Care Time?: No Stability Stability form required: No Heart Score Heart Score: Heart Score Response (Comments) Value History Slightly Suspicious 0 EKG Repolarization Disturb 1 Age >65 2 Risk Factors >3 or Hx ASHD 2 Troponin >3 x's Normal limit 2 Total 7 I personally scribed for ALINE JOHNSON MD ([email or web address]) on 03/29/25 at 09:41. Electronically submitted by Brii Ortez ([email or web address]). ALINE JOHNSON MD Mar 29, 2025 09:41
[2025-03-29 09:50] LABS: Basophils # (auto) 0.1 10 ^3/uL (0-0.2); Basophils % (auto) 0.8 % (0.0-2.0); Eosinophils # (auto) 0.2 10 ^3/uL (0-0.8); Eosinophils % (auto) 2.8 % (0.0-7.0); Hematocrit 41.1 % (36.0-46.0); Hemoglobin 13.9 g/dL (12.2-16.2); Lymphocytes # (auto) 1.4 10 ^3/uL (0.4-5.4); Mean Corpuscular Hemoglobin 31.7 pg (28.0-32.0); Mean Corpuscular Hgb Conc. 33.9 g/dL (32.0-36.0); Mean Corpuscular Volume 93.5 fL (80.0-100.0); Monocytes # (auto) 0.3 10 ^3/uL (0-1.3); Monocytes % (auto) 4.7 % (0.0-12.0); Neutrophils # (auto) 5.2 10 ^3/uL (1.6-8.6); Neutrophils % (auto) 71.7 % (37.0-80.0); Platelet Count (auto) 276 10^3/uL (140-450); Red Cell Distribution Width 16.3 % (11.8-14.3); White Blood Cell 7.2 10^3/uL (4.4-10.8)
--- NOTE | 2025-03-29 10:06 | DVH ---
CLINICAL INFORMATION: 84 years old, Female; weakness. TECHNIQUE: Single AP portable chest radiograph was obtained. COMPARISON: XY CHEST PORTABLE on DOS: 03/06/24 FINDINGS: Lungs: Clear. Cardiac: Heart size is within normal limits. Pulmonary vasculature: Unremarkable. Mediastinum/[place]: Moderate atherosclerotic calcification. Bones: No acute osseous abnormality identified. Other: No other significant findings. IMPRESSION: No evidence of acute disease in the chest.
[2025-03-29 10:07] LABS: Sodium 143 mmol/L (136-145)
[2025-03-29 10:08] LABS: Anion Gap 9 (5-15); Calcium 10.2 mg/dL (8.7-10.4); Carbon Dioxide 21 mmol/L (20-31)
[2025-03-29 10:13] LABS: BUN/Creatinine Ratio 13.3 (10.0-20.0); Blood Urea Nitrogen 11 mg/dL (9-23); Chloride 113 mmol/L (98-107); Glucose 101 mg/dL (74-106)
[2025-03-29] MEDS ORDERED: MORPHINE SULFATE INJ 2 MG/ml SYRG IV PRN (12:30)
[2025-03-29] MEDS ORDERED: NITROGLYCERIN 0.4 MG SL TAB SL PRN (12:30)
[2025-03-29] MEDS ORDERED: ONDANSETRON HCL 4 MG/2 ML VIAL IV PRN (12:30)
[2025-03-29] MEDS ORDERED: DOCUSATE SOD 100 MG CAP PO PRN (12:30)
[2025-03-29] MEDS ORDERED: CARV12.544 PO (12:31)
[2025-03-29] MEDS ORDERED: LOS25T PO (12:31)
[2025-03-29] MEDS ORDERED: MET500T PO (12:34)
--- NOTE | 2025-03-29 12:49 | DVHHP2 ---
History of Present Illness Reason for Visit: Generalized weakness History of Present Illness Toma Mccracken, is an 84-year-old female with past medical history of CVA, hypertension, hyperlipidemia, and hypothyroidism who came to the hospital for generalized weakness. Patient states she came to the hospital because she can't stand up. Patient resides at [facility] due to a stroke that has left her mostly wheelchair bound with left sided weakness. According to EMS they have been to [facility] multiple times this week to take her to the hospital. They have taken her to [place], and [place] has sent her back to [facility]. She usually complains of chest pain. Today she keeps repeating that she can't stand up. Cardiovascular: HTN, hyperipidemia CAREER COORDINATOR: CVA (1 year ago, left sided weakness) Endocrine: Hypothyroidism Past Surgical History: Cholecystectomy, Hysterectomy Smoke: No ALCOHOL: none Drugs: None Lives: [place] Domestic Violence: Neg Review of Systems Constitutional: Yes: Weakness, Malaise; No: Fever, Chills, Sweats, Other Eyes: No: Pain, Vision change, Conjunctivae inflammation, Eyelid inflammation, Other, Redness ENT: No: Ear pain, Ear discharge, Nose pain, Nose discharge, Nose congestion, Mouth pain, Mouth swelling, Throat pain, Throat swelling, Other Respiratory: No: Cough, Dry, Shortness of breath, SOB with excertion, Wheezing, Hemoptysis, Pleuritic Pain, Sputum, Wheezing, Other Cardiovascular: No: Chest Pain, Palpitations, Orthopnea, Paroxysmal Noc. Dyspnea, Edema, Lt Headedness, Other Gastrointestinal: No: Nausea, Vomiting, Abdominal Pain, Diarrhea, Constipation, Melena, Hematochezia, Other Genitourinary: No Dysuria, No Frequency, No Incontinence, No Hematuria, No Retention, No Other Musculoskeletal: No: other, neck pain, shoulder pain, arm pain, back pain, hand pain, leg pain, foot pain Skin: No: Rash, Lesions, Jaundice, Bruising, Other Neurological: Weakness, Change in speech; No: Numbness, Incoordination, Confusion, Seizures, Other Allergies: Coded Allergies: NO KNOWN ALLERGIES (Unverified , 09/06/23) Medications Current Medications Medications Dose Ordered Sig/Froilan Route Start Time Stop Time Status Last Admin Dose Admin Sodium Chloride 10 ml Q8HR IV 03/29/25 14:00 UNV Acetaminophen/ Hydrocodone Bitart 1 tab Q4HP PRN PO 03/29/25 12:30 UNV Ondansetron HCl 4 mg Q4HP PRN IV 03/29/25 12:30 UNV Docusate Sodium 100 mg BIDPRN PRN PO 03/29/25 12:30 UNV Acetaminophen 650 mg Q6HP PRN PO 03/29/25 12:30 UNV Nitroglycerin 0.4 mg Q5MINP PRN SL 03/29/25 12:30 UNV Morphine Sulfate 2 mg Q30M PRN IV 03/29/25 12:30 UNV Aspirin 81 mg DAILY PO 03/30/25 10:00 UNV Patient Own Medication 1 tab DAILY PO 03/30/25 10:00 UNV Patient Own Medication 1 tab DAILY PO 03/30/25 10:00 UNV Patient Own Medication 1 tab DAILY PO 03/30/25 10:00 UNV Exam Vital Signs Vital Signs Date Time Temp Pulse Resp B/P (MAP) Pulse Ox O2 Delivery O2 Flow Rate FiO2 03/29/25 12:08 97.9 71 23 112/64 (80) 97 97.9 03/29/25 10:02 Room Air* 0 21 General Appearance: Alert, Cooperative, Other (oriented x 1) HEENT: Atraumatic, PERRLA, Mucous membr. moist/pink Respiratory: Clear to auscultation Cardiovascular: Regular rate, Normal S1, Normal S2 Abdominal: Normal bowel sounds, Soft, No tenderness Extremities: No clubbing, No cyanosis, No edema, Normal pulses Skin: No rashes, No breakdown, No significant lesion Neuro: Other (Wheelchair bound at baseline, S/P CVA 1 year ago) Labs/Xrays Labs Test 03/29/25 10:43 03/29/25 09:41 Range/Units Troponin I High Sensitivity 265 *H </=34 ng/L White Blood Count 7.2 4.4-10.8 10^3/uL Red Blood Count 4.40 4.0-5.20 10^6/uL Hemoglobin 13.9 12.2-16.2 g/dL Hematocrit 41.1 36.0-46.0 % Mean Corpuscular Volume 93.5 80.0-100.0 fL Mean Corpuscular Hemoglobin 31.7 28.0-32.0 pg Mean Corpuscular Hemoglobin Concent 33.9 32.0-36.0 g/dL Red Cell Distribution Width 16.3 H 11.8-14.3 % Platelet Count 276 140-450 10^3/uL Mean Platelet Volume 7.9 6.9-10.8 fL Neutrophils (%) (Auto) 71.7 37.0-80.0 % Lymphocytes (%) (Auto) 20.0 10.0-50.0 % Monocytes (%) (Auto) 4.7 0.0-12.0 % Eosinophils (%) (Auto) 2.8 0.0-7.0 % Basophils (%) (Auto) 0.8 0.0-2.0 % Neutrophils # (Auto) 5.2 1.6-8.6 10 ^3/uL Lymphocytes # (Auto) 1.4 0.4-5.4 10 ^3/uL Monocytes # (Auto) 0.3 0-1.3 10 ^3/uL Eosinophils # (Auto) 0.2 0-0.8 10 ^3/uL Basophils # (Auto) 0.1 0-0.2 10 ^3/uL Nucleated Red Blood Cells 0.0 % Sodium Level 143 136-145 mmol/L Potassium Level 5.0 3.5-5.1 mmol/L Chloride Level 113 H 98-107 mmol/L Carbon Dioxide Level 21 20-31 mmol/L Anion Gap 9 5-15 Blood Urea Nitrogen 11 9-23 mg/dL Creatinine 0.83 0.550-1.02 mg/dL Glomerular Filtration Rate Calc 69 >90 mL/min BUN/Creatinine Ratio 13.3 10.0-20.0 Serum Glucose 101 74-106 mg/dL Calcium Level 10.2 8.7-10.4 mg/dL TECHNIQUE: Single AP portable chest radiograph was obtained. FINDINGS: Lungs: Clear. Cardiac: Heart size is within normal limits. Pulmonary vasculature: Unremarkable. Mediastinum/[place]: Moderate atherosclerotic calcification. Bones: No acute osseous abnormality identified. Other: No other significant findings. IMPRESSION: No evidence of acute disease in the chest. Assessment/Plan Assessment/Plan Assessment: Elevated troponin, UTI, Dehydration, Thrush, Hypertension, Hyperlipidemia, Hypothyroidism, Plan: Admit to Tele, Cardiology consult, IV antibiotics, IV hydration, Oral Nystatin, Home medications reconciled, Plan discussed with: Patient My Orders Orders - YA ARANDA DIE SINKER APPRENTICE Procedure Category Date Status Time Admit ADMIT 03/29/25 Transmitted 12:27 Code Status CODE 03/29/25 Transmitted 12:27 Sodium Chloride Lock PHA 03/29/25 Logged (Saline Lock Ns) 14:00 Hydrocodone-Acet PHA 03/29/25 Logged 5/325mg Tab ([employer] 12:30 Ondansetron Hcl PHA 03/29/25 Logged (Zofran) 12:30 Docusate Sodium PHA 03/29/25 Logged Capsule (Colace 12:30 Fall Risk Precautions SALLY 03/29/[address] 12:27 Complete Blood Count LAB 03/30/25 Verified 04:00 Comprehensive LAB 03/30/25 Verified Metabolic Panel 04:00 Cardiac DIET 03/29/25 Transmitted Diet-2gna,Lofat,Lochol Lunch Pt Request For Service PT 03/29/25 Logged 12:27 Condition: Serious SALLY 03/29/25 In Process 12:27 Acetaminophen Tablet PHA 03/29/25 Logged (Tylenol Tablet) 12:30 Nitroglycerin PHA 03/29/25 Logged Sublingual (Ntrostat 12:30 Morphine Sulfate PHA 03/29/25 Logged Injection 12:30 Stat Ekg For Chest SALLY 03/29/25 In Process Pain 12:27 Notify Of Changes SALLY 03/29/25 In Process From Base 12:27 Terrazzo Polisher Helper For SALLY 03/29/25 In Process 24 Hours 12:27 Emergency Dysrhythmia SALLY 03/29/25 In Process Protocol 12:27 Rhythm Strips Once SALLY 03/29/25 In Process Every Shift 12:27 Oxygen By Nasal RT 03/29/25 Transmitted Cannula 12:27 Aspirin Enteric PHA 03/30/25 Logged Coated Tablet 10:00 (Nf) Atorvastatin PHA 03/30/25 Logged Calcium 10:00 (Nf) Levothyroxine PHA 03/30/25 Logged Sodium 10:00 (Nf) Nifedipine PHA 03/30/25 Logged (Nifedipine Er) 10:00 * Cardiology Consult CONS 03/29/25 Transmitted 12:31 Carvedilol Tablet PHA 03/29/25 Transmitted (Coreg Tablet) 22:00 Losartan Tablet PHA 03/30/25 Transmitted (Cozaar Tablet) 10:00 Date of Service: Mar 29, 2025 Billing Provider: YA ARANDA Common Visit Codes: [id number] INP/OBS CARE (MOD) YA ARANDA Mar 29, 2025 12:49
[2025-03-29 13:14] LABS: Urine Bacteria FEW /hpf (None Seen); Urine Blood Negative /uL (Negative); Urine Clarity Turbid (Clear); Urine Color Light-Orange (Yellow); Urine Mucus FEW (None Seen); Urine Protein, UAD Negative (Negative); Urine Specific Gravity 1.018 (1.001-1.035); Urine Squamous Epithelial Cell FEW /hpf (<5); Urine Urobilinogen Normal (Negative); Urine WBC 320 /HPF (0-5)
[2025-03-29] MEDS ORDERED: MORPHINE SULFATE 4 MG/ML SYR/VIAL IV PRN (13:30)
[2025-03-29] MEDS: metroNIDAZOLE 500 MG TAB PO SCH (14:54)
[2025-03-29] MEDS: SODIUM CHLOR 0.9% PF (SALINE LOCK) 10ML VIAL/SYR IV SCH (14:55)
--- NOTE | 2025-03-29 15:09 | DVHCONRES ---
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 According to the patient for the past 2 weeks, she has been having decreased energy and today was unable to get up which is what prompted this visit to the hospital. Per patient, she was discharged from [facility] after a 3 day hospitalization stay. Patient denies having similar symptoms in the past, and believes that her weakness is increased from before. On review of systems patient is complaining of fatigue, chills, dysuria and urinary frequency. Serial troponins were 247, 265 and 236. EKG was not available on file, a 12 lead EKG was ordered for the patient. Past Medical History hypertension, dyslipidemia, hypothyroidism, CVA 1 year ago with residual left- sided weakness Past Surgical History Hysterectomy, cholecystectomy Family History: Patient reports no known family medical history. Social History Smoking: Denies Alcohol: Denies Drugs: Denies Patient currently resides at [facility]. Allergies: Coded Allergies: NO KNOWN ALLERGIES (Unverified , 09/06/23) Home Meds Active Scripts Aspirin (Aspirin Low Dose) 81 Mg Tab, 81 MG PO DAILY for 90 Days, #90 TAB 3 Refills Prov:KAVITHA REDDING RESIDENT 03/09/24 Reported Medications Metronidazole (Metronidazole) 500 Mg Tab, 1 TAB PO TID 03/29/25 Carvedilol (Carvedilol) 12.5 Mg Tab, 1 TAB PO BID 03/29/25 Losartan Potassium (Losartan Potassium) 25 Mg Tab, 1 TAB PO DAILY 03/29/25 Potassium Chloride (Klor-Con M20) 20 Meq Tab, 1 TAB PO DAILY 03/08/24 Levothyroxine Sodium (Levothyroxine Sodium) 75 Mcg Tab, 1 TAB PO DAILY, #30 TAB 5 Refills 09/08/23 Atorvastatin Calcium (ATORVASTATIN CALCIUM) 40 Mg Tab, 1 TAB PO DAILY, #30 TAB 5 Refills 09/08/23 Nifedipine (Nifedipine Er) 60 Mg Tab, 1 TAB PO DAILY, #30 TAB 5 Refills 09/08/23 Discontinued Reported Medications Amiloride HCl (Amiloride Hydrochloride) 5 Mg Tab, 5 MG PO, TAB 09/08/23 Aspirin Buffered (Paramjit Carb-Mag (Aspirin 325 mg) 1 Tab Tab, 1 TAB PO, TAB 09/08/23 Current Medications Current Medications Medications (Trade) Dose Ordered Sig/Froilan Route PRN Reason Start Time Stop Time Status Last Admin Sodium Chloride (Saline Lock Ns) 10 ml Q8HR IV 03/29/25 14:00 Acetaminophen/ Hydrocodone Bitart ([place] 5/325MG Tab) 1 tab Q4HP PRN PO MODERATE PAIN (4-6 PAIN SCALE) 03/29/25 12:30 Ondansetron HCl (Zofran) 4 mg Q4HP PRN IV NAUSEA / VOMITING 03/29/25 12:30 Docusate Sodium (Colace Capsule) 100 mg BIDPRN PRN PO FOR CONSTIPATION 03/29/25 12:30 Acetaminophen (Tylenol Tablet) 650 mg Q6HP PRN PO PAIN SCALE 1-3 OR TEMP>100.4 03/29/25 12:30 Nitroglycerin (Ntrostat Sublingual) 0.4 mg Q5MINP PRN SL FOR CHEST PAIN 03/29/25 12:30 Morphine Sulfate 2 mg Q30M PRN IV FOR CHEST PAIN 03/29/25 12:30 UNV Aspirin (Ecotrin Enteric Coated Tablet) 81 mg DAILY PO 03/30/25 10:00 Patient Own Medication 1 tab DAILY PO 03/30/25 10:00 UNV Patient Own Medication 1 tab DAILY PO 03/30/25 10:00 UNV Patient Own Medication 1 tab DAILY PO 03/30/25 10:00 UNV Carvedilol (Coreg Tablet) 12.5 mg BID PO 03/29/25 22:00 Losartan Potassium (Cozaar Tablet) 25 mg DAILY PO 03/30/25 10:00 Metronidazole (Flagyl Tablet) 500 mg TID PO 03/29/25 14:00 Atorvastatin Calcium (Lipitor) 40 mg HS PO 03/29/25 22:00 Nifedipine (Procardia Xl (Time-Release)) 60 mg DAILY PO 03/30/25 10:00 Levothyroxine Sodium (Synthroid Tablet) 25 mcg QAM PO 03/30/25 07:00 Levothyroxine Sodium (Synthroid Tablet) 50 mcg QAM PO 03/30/25 07:00 Morphine Sulfate 2 mg Q30M PRN IV FOR CHEST PAIN 03/29/25 13:30 Review of Systems Patient seen and examined at bedside. Patient is alert and oriented to time, place person and responding to all questions. General: Fatigue, chills Eyes: No Pain, No Vision change, No Conjunctivae inflammation, No Eyelid inflammation, No Other, No Redness ENT: No Ear pain, No Ear discharge, No Nose pain, No Nose discharge, No Nose congestion, No Mouth pain, No Mouth swelling, No Throat pain, No Throat swelling, No Other Cardiovascular: No Chest Pain, No Palpitations, No Orthopnea, No Paroxysmal No Dyspnea, No Edema, No Lt Headedness, No Other Respiratory: No Cough, No Dry, No Shortness of breath, No SOB with exertion, No Wheezing, No Hemoptysis, No Pleuritic Pain, No Sputum, No Other Gastrointestinal: No Nausea, No Vomiting, No Abdominal Pain, No Diarrhea, No Constipation, No Melena, No Hematochezia, No Other Genitourinary: Dysuria, Frequency, No Incontinence, No Hematuria, No Retention, No Other Musculoskeletal: No other, No neck pain, No shoulder pain, No arm pain, No back pain, No hand pain, No leg pain, No foot pain Skin: No Rash, No Lesions, No Jaundice, No Bruising, No Other Vital Signs Vital Signs Date Time Temp Pulse Resp B/P (MAP) Pulse Ox O2 Delivery O2 Flow Rate FiO2 03/29/25 13:08 67 15 134/62 (86) 98 03/29/25 12:08 97.9 97.9 03/29/25 10:02 Room Air* 0 21 Physical Exam General Appearance: Cooperative. Well developed. Well nourished. NAD Head Exam: Normal inspection. Extensive white patches noted on the tongue Neck Exam: Normal inspection. Non-tender. Normal alignment Pulmonary/Respiratory: Chest non-tender. Clear bilateral breath sounds, no crackles, no wheezing. Cardiovascular/Chest: Regular rate and rhythm. No murmurs. No JVD. Abdominal Exam: Normal bowel sounds. Soft. normal abdomen, no visible veins, Nontender. No hepatospenomegaly. No masses Ankle Exam: Negative ankle edema Neuro/Mental Status: A&O x4. Coherent. Thoughts/Psych: Normal thought pattern. Appropriate mood and affect. Good judgement and insight Skin Exam: Normal inspection. Normal color. Warm. Dry Labs/Diagnostic Data Labs Test 03/29/25 13:09 03/29/25 12:45 03/29/25 09:41 Range/Units Troponin I High Sensitivity 236 *H </=34 ng/L Urine Color Light-orange Yellow Urine Clarity Turbid H Clear Urine pH 6.0 5.0-9.0 Urine Specific [place] 1.018 1.001-1.035 Urine Protein Negative Negative Urine Ketones Negative Negative Urine Blood Negative Negative /uL Urine Nitrite Negative Negative Urine Bilirubin Negative Negative Urine Urobilinogen Normal Negative mg/dL Urine Leukocyte Esterase 3+ Negative /uL Urine RBC 11 0 - 4 /hpf Urine Microscopic WBC 320 H 0-5 /HPF Urine Squamous Epithelial Cells Few <5 /hpf Urine Bacteria Few H None Seen /hpf Urine Mucus Few None Seen Urine Glucose Normal Normal mg/dL White Blood Count 7.2 4.4-10.8 10^3/uL Red Blood Count 4.40 4.0-5.20 10^6/uL Hemoglobin 13.9 12.2-16.2 g/dL Hematocrit 41.1 36.0-46.0 % Mean Corpuscular Volume 93.5 80.0-100.0 fL Mean Corpuscular Hemoglobin 31.7 28.0-32.0 pg Mean Corpuscular Hemoglobin Concent 33.9 32.0-36.0 g/dL Red Cell Distribution Width 16.3 H 11.8-14.3 % Platelet Count 276 140-450 10^3/uL Mean Platelet Volume 7.9 6.9-10.8 fL Neutrophils (%) (Auto) 71.7 37.0-80.0 % Lymphocytes (%) (Auto) 20.0 10.0-50.0 % Monocytes (%) (Auto) 4.7 0.0-12.0 % Eosinophils (%) (Auto) 2.8 0.0-7.0 % Basophils (%) (Auto) 0.8 0.0-2.0 % Neutrophils # (Auto) 5.2 1.6-8.6 10 ^3/uL Lymphocytes # (Auto) 1.4 0.4-5.4 10 ^3/uL Monocytes # (Auto) 0.3 0-1.3 10 ^3/uL Eosinophils # (Auto) 0.2 0-0.8 10 ^3/uL Basophils # (Auto) 0.1 0-0.2 10 ^3/uL Nucleated Red Blood Cells 0.0 % Sodium Level 143 136-145 mmol/L Potassium Level 5.0 3.5-5.1 mmol/L Chloride Level 113 H 98-107 mmol/L Carbon Dioxide Level 21 20-31 mmol/L Anion Gap 9 5-15 Blood Urea Nitrogen 11 9-23 mg/dL Creatinine 0.83 0.550-1.02 mg/dL Glomerular Filtration Rate Calc 69 >90 mL/min BUN/Creatinine Ratio 13.3 10.0-20.0 Serum Glucose 101 74-106 mg/dL Calcium Level 10.2 8.7-10.4 mg/dL Assessment Acute complicated UTI Dehydration NSTEMI type 2 due to above History of CVA with residual left-sided weakness; increasing weakness Oral candidiasis Plan: Serum BNP 12 Continue antibiotics Nystatin Control blood pressure IV fluids Recommend further neurologic evaluation, consider progression of cerebral ischemic disease with progressive symptoms Thank you so much for the opportunity to consult on your patient. Cardiology team will sign off. In case of any questions or concerns please feel free to reach out. Plan discussed with Dr. Chavez Plan discussed with: Patient, Other (RN) Visit Coding Cardiology RES Date of Service: Mar 29, 2025 Billing Provider: ROLDAN CHAVEZ MD Cardiology Common Codes: [id number] INP/OBS CARE (High) ROLDAN CHAVEZ MD 03/31/25 1009: Date Seen: Mar 29, 2025 Family History: Patient reports no known family medical history. Allergies: Coded Allergies: NO KNOWN ALLERGIES (Unverified , 09/06/23) Home Meds Active Scripts Aspirin (Aspirin Low Dose) 81 Mg Tab, 81 MG PO DAILY for 90 Days, #90 TAB 3 Refills Prov:KAVITHA REDDING RESIDENT 03/09/24 Reported Medications Metronidazole (Metronidazole) 500 Mg Tab, 1 TAB PO TID 03/29/25 Carvedilol (Carvedilol) 12.5 Mg Tab, 1 TAB PO BID 03/29/25 Losartan Potassium (Losartan Potassium) 25 Mg Tab, 1 TAB PO DAILY 03/29/25 Potassium Chloride (Klor-Con M20) 20 Meq Tab, 1 TAB PO DAILY 03/08/24 Levothyroxine Sodium (Levothyroxine Sodium) 75 Mcg Tab, 1 TAB PO DAILY, #30 TAB 5 Refills 09/08/23 Atorvastatin Calcium (ATORVASTATIN CALCIUM) 40 Mg Tab, 1 TAB PO DAILY, #30 TAB 5 Refills 09/08/23 Nifedipine (Nifedipine Er) 60 Mg Tab, 1 TAB PO DAILY, #30 TAB 5 Refills 09/08/23 Discontinued Reported Medications Amiloride HCl (Amiloride Hydrochloride) 5 Mg Tab, 5 MG PO, TAB 09/08/23 Aspirin Buffered (Paramjit Carb-Mag (Aspirin 325 mg) 1 Tab Tab, 1 TAB PO, TAB 09/08/23 Plan/Recommendation 84F with multiple cva history, reporting LE weakness. No cardiac symptoms identified. Elevated troponin with largely no delta. Likely non type 1 CT in etiology. monitor BP, neuro eval. Otherwise will need outpatient follow up for risk factor modification as possible. Visit Coding Cardiology RES Cardiology Common Codes: [id number] INP/OBS CARE (Mod) YAMILET NEWTON Mar 29, 2025 15:08 ROLDAN CHAVEZ MD Mar 31, 2025 10:09
--- NOTE | 2025-03-29 15:42 | ECG ---
[facility] Test Date: 2025-03-29 Test Time: 09:36:38 Pat Name: KATHI PRIEST Department: ED Room: 0206T Gender: F Terrazzo Layer Helper: BETTYE : 1940 Requested By: ALINE JOHNSON Order Number: [id number] Reading MD: Guanakito Oh Measurements Intervals [place] Rate: 72 P: 70 [place]: 163 QRS: 4 QRSD: 69 T: 69 QT: 382 QTc: 419 Interpretive Statements Sinus rhythm Borderline low voltage, extremity leads Abnormal R-wave progression, early transition Electronically Signed On 03-30-2025 21:08:04 PDT by Guanakito Oh Please click the below link to view image of tracing.
[2025-03-29] MEDS: cefTRIAXone 1GM/50ML D5W 50 ML IV ONE (16:03)
[2025-03-29] MEDS: SODIUM CHLORIDE 0.9% 500 ML IV ONE (16:03)
[2025-03-29] MEDS: SODIUM CHLORIDE 0.9% 1,000 ML IV SCH (16:04)
[2025-03-29] MEDS: NYSTATIN (MOUTH-THROAT) 500,000 UNITS/5 ML SUSP MT SCH ×2 (17:28→17:31)
[2025-03-29] MEDS: HYDROcodone-ACET 5/325MG TAB PO PRN (17:30)
[2025-03-29 19:07] VITALS: BP 152/80; PULSE 66; RESP 17; TEMP 97.7; O2SAT 97
[2025-03-29 19:13] VITALS: BP 152/80; PULSE 66; RESP 17; TEMP 97.7; O2SAT 97
[2025-03-29 20:00] VITALS: PULSE 64
[2025-03-29 20:17] VITALS: PULSE 69; RESP 17; O2SAT 96
[2025-03-29 21:00] VITALS: BP 159/70; PULSE 69; RESP 17; TEMP 98; O2SAT 96
[2025-03-29] MEDS: ATORVASTATIN 20 MG TAB PO SCH (21:58)
[2025-03-29] MEDS: CARVEDILOL 12.5 MG TAB PO SCH (22:00)
[2025-03-30] VITALS (8 sets, daily range): BP systolic 126–151; BP diastolic 58–70; PULSE 53–69; RESP 14–18; TEMP 83.9–98.3; O2SAT 95–98
[2025-03-30 05:43] LABS: Basophils # (auto) 0 10 ^3/uL (0-0.2); Basophils % (auto) 0.6 % (0.0-2.0); Eosinophils # (auto) 0.1 10 ^3/uL (0-0.8); Eosinophils % (auto) 1.5 % (0.0-7.0); Hematocrit 39.2 % (36.0-46.0); Hemoglobin 13.3 g/dL (12.2-16.2); Lymphocytes # (auto) 1.1 10 ^3/uL (0.4-5.4); Lymphocytes % (auto) 13.5 % (10.0-50.0); Mean Corpuscular Hgb Conc. 33.9 g/dL (32.0-36.0); Mean Corpuscular Volume 94.4 fL (80.0-100.0); Monocytes # (auto) 0.4 10 ^3/uL (0-1.3); Monocytes % (auto) 5.1 % (0.0-12.0); Neutrophils # (auto) 6.3 10 ^3/uL (1.6-8.6); Neutrophils % (auto) 79.3 % (37.0-80.0); Nucleated Red Blood Cells % 0.1 %; Platelet Count (auto) 258 10^3/uL (140-450); Red Blood Cells 4.15 10^6/uL (4.0-5.20); Red Cell Distribution Width 16.5 % (11.8-14.3); White Blood Cell 7.9 10^3/uL (4.4-10.8)
[2025-03-30 06:05] LABS: Albumin 3.7 g/dL (3.2-4.8); Alkaline Phosphatase 90 U/L (46-116); Anion Gap 11 (5-15); BUN/Creatinine Ratio 15.5 (10.0-20.0); Bilirubin, Total 0.5 mg/dL (0.2-1.0); Blood Urea Nitrogen 13 mg/dL (9-23); Calcium 9.8 mg/dL (8.7-10.4); Carbon Dioxide 20 mmol/L (20-31); Potassium 4.3 mmol/L (3.5-5.1); Sodium 144 mmol/L (136-145); Total Protein 6.7 g/dL (5.7-8.2)
[2025-03-30 06:06] LABS: Alanine Aminotransferase 62 U/L (7-40); Aspartate Aminotransferase 156 U/L (13-40); Chloride 113 mmol/L (98-107); Glucose 107 mg/dL (74-106)
[2025-03-30] MEDS: LEVOTHYROXINE SODIUM 25 MCG TAB PO SCH (06:15)
[2025-03-30] MEDS: LEVOTHYROXINE SODIUM 50 MCG TAB PO SCH (06:15)
[2025-03-30] MEDS: cefTRIAXone 1GM/50ML D5W 50 ML IV SCH (09:53)
[2025-03-30] MEDS: LOSARTAN POTASSIUM 25 MG TAB PO SCH (09:54)
[2025-03-30] MEDS: ASPirin-EC 81 mg tab PO SCH (09:55)
[2025-03-30] MEDS: NIFEdipine ER 30 MG TAB PO SCH (09:55)
[2025-03-30] MEDS ORDERED: PATIENTS OWN MEDICATION (Nifedipine (Nifedipine Er) 1 TAB) PO SCH (10:00)
[2025-03-30] MEDS ORDERED: PATIENTS OWN MEDICATION (Levothyroxine Sodium 1 TAB) PO SCH (10:00)
[2025-03-30] MEDS ORDERED: PATIENTS OWN MEDICATION (Atorvastatin Calcium 1 TAB) PO SCH (10:00)
--- NOTE | 2025-03-30 11:38 | DVHPN2 ---
Progress Note Date Seen: Mar 30, 2025 Medical Necessity Reason Pt with a Central, PICC or Fol: Yes The following are medically ne: Navarrete Catheter Reason for navarrete catheter: Strict I&O Subjective Patient reports: No new complaints Review of Systems: HEENT:Normal, CVS:Normal, RESPIRATORY:Normal, GI:Normal, :Normal, MSK:Normal, NEURO:Normal Objective vital signs Vital Sign Date Time Temp Pulse Resp B/P (MAP) Pulse Ox O2 Delivery O2 Flow Rate FiO2 03/30/25 10:56 62 142/71 03/30/25 08:46 98.0 15 96 98.0 03/30/25 07:40 Room Air* 0 21 Total Intake and Output 03/29/25 03/29/25 03/30/25 15:00 23:00 07:00 Intake Total 850 ml 1000 ml Balance 850 ml 1000 ml medications Current Medications Medications Dose Ordered Sig/Froilan Route Start Time Stop Time Status Last Admin Dose Admin Acetaminophen/ Hydrocodone Bitart 1 tab Q4HP PRN PO 03/29/25 12:30 03/29/25 21:59 1 TAB Ondansetron HCl 4 mg Q4HP PRN IV 03/29/25 12:30 Docusate Sodium 100 mg BIDPRN PRN PO 03/29/25 12:30 Acetaminophen 650 mg Q6HP PRN PO 03/29/25 12:30 Nitroglycerin 0.4 mg Q5MINP PRN SL 03/29/25 12:30 Morphine Sulfate 2 mg Q30M PRN IV 03/29/25 12:30 UNV Aspirin 81 mg DAILY PO 03/30/25 10:00 03/30/25 09:55 81 MG Patient Own Medication 1 tab DAILY PO 03/30/25 10:00 UNV Patient Own Medication 1 tab DAILY PO 03/30/25 10:00 UNV Patient Own Medication 1 tab DAILY PO 03/30/25 10:00 UNV Carvedilol 12.5 mg BID PO 03/29/25 22:00 03/30/25 09:54 12.5 MG Losartan Potassium 25 mg DAILY PO 03/30/25 10:00 03/30/25 09:54 25 MG Atorvastatin Calcium 40 mg HS PO 03/29/25 22:00 03/29/25 21:58 40 MG Nifedipine 60 mg DAILY PO 03/30/25 10:00 03/30/25 09:55 60 MG Levothyroxine Sodium 25 mcg QAM PO 03/30/25 07:00 03/30/25 06:15 25 MCG Levothyroxine Sodium 50 mcg QAM PO 03/30/25 07:00 03/30/25 06:15 50 MCG Morphine Sulfate 2 mg Q30M PRN IV 03/29/25 13:30 Nystatin 5 ml QID MT 03/29/25 18:00 03/30/25 10:56 5 ML Sodium Chloride 1,000 ml @ 75 mls/hr [id number] IV 03/30/25 11:30 UNV Ertapenem 1 gm/ Sodium Chloride 50 ml @ 100 mls/hr DAILY IV 03/31/25 10:00 UNV Examination: GENERAL:Normal, HEENT:Normal, NECK:Normal, LUNGS:Normal, CVS:Normal, ABDOMEN:Normal, MSK:Normal, SKIN:Normal, NEURO:Normal, NEURO:Abnormal (left contracture, weakness), :Normal laboratory and microbiology Laboratory Tests 03/30/25 05:28 Test 03/30/25 05:28 Range/Units Serum Glucose 107 H 74-106 mg/dL Problem List/Assessment/Plan Problem List/Assessment/Plan #1 uti ?sepsis: iv ertapenem, culture #2 cva with left weakness #3 htn #4 nstemi ?type 2 advance care planning- dnr- time spent 19 mins Plan discussed with: Patient My Orders My Orders Orders - CHRISTIANO FERRARI MD Procedure Category Date Status Time Sodium Chloride 0.9% PHA 03/30/25 Logged 11:30 Urine Bacterial TANESHA 03/30/25 Logged Culture 11:27 Ertapenem Sod Inj PHA 03/30/25 Logged (Invanz) 11:30 Ertapenem Sod Inj PHA 03/31/25 Logged (Invanz) 10:00 Date of Service: Mar 30, 2025 Billing Provider: CHRISTIANO FERRARI MD Common Visit Codes: [id number] INP/OBS CARE(HIGH) Secondary Visit Codes: 84998-ROIINIUG CARE PLAN 30 MINUTES CHRISTIANO FERRARI MD Mar 30, 2025 11:38
--- NOTE | 2025-03-30 11:41 | DVHPN2 ---
Progress Note - Dictate Medical Necessity Reason Pt with a Central, PICC or Fol: Yes The following are medically ne: Navarrete Catheter Reason for navarrete catheter: Strict I&O vital signs Vital Sign Date Time Temp Pulse Resp B/P (MAP) Pulse Ox O2 Delivery O2 Flow Rate FiO2 03/30/25 10:56 62 142/71 03/30/25 08:46 98.0 15 96 98.0 03/30/25 07:40 Room Air* 0 21 Total Intake and Output 03/29/25 03/29/25 03/30/25 14:59 22:59 06:59 Intake Total 850 ml 1000 ml Balance 850 ml 1000 ml medications Current Medications Medications Dose Ordered Sig/Froilan Route Start Time Stop Time Status Last Admin Dose Admin Acetaminophen/ Hydrocodone Bitart 1 tab Q4HP PRN PO 03/29/25 12:30 03/29/25 21:59 1 TAB Ondansetron HCl 4 mg Q4HP PRN IV 03/29/25 12:30 Docusate Sodium 100 mg BIDPRN PRN PO 03/29/25 12:30 Acetaminophen 650 mg Q6HP PRN PO 03/29/25 12:30 Nitroglycerin 0.4 mg Q5MINP PRN SL 03/29/25 12:30 Morphine Sulfate 2 mg Q30M PRN IV 03/29/25 12:30 UNV Aspirin 81 mg DAILY PO 03/30/25 10:00 03/30/25 09:55 81 MG Patient Own Medication 1 tab DAILY PO 03/30/25 10:00 UNV Patient Own Medication 1 tab DAILY PO 03/30/25 10:00 UNV Patient Own Medication 1 tab DAILY PO 03/30/25 10:00 UNV Carvedilol 12.5 mg BID PO 03/29/25 22:00 03/30/25 09:54 12.5 MG Losartan Potassium 25 mg DAILY PO 03/30/25 10:00 03/30/25 09:54 25 MG Atorvastatin Calcium 40 mg HS PO 03/29/25 22:00 03/29/25 21:58 40 MG Nifedipine 60 mg DAILY PO 03/30/25 10:00 03/30/25 09:55 60 MG Levothyroxine Sodium 25 mcg QAM PO 03/30/25 07:00 03/30/25 06:15 25 MCG Levothyroxine Sodium 50 mcg QAM PO 03/30/25 07:00 03/30/25 06:15 50 MCG Morphine Sulfate 2 mg Q30M PRN IV 03/29/25 13:30 Nystatin 5 ml QID MT 03/29/25 18:00 03/30/25 10:56 5 ML Sodium Chloride 1,000 ml @ 75 mls/hr [id number] IV 03/30/25 11:30 UNV Ertapenem 1 gm/ Sodium Chloride 50 ml @ 100 mls/hr DAILY IV 03/31/25 10:00 UNV laboratory and microbiology Laboratory Tests 03/30/25 05:28 Test 03/30/25 05:28 Range/Units Serum Glucose 107 H 74-106 mg/dL KAYLEE COLLINS DIAL PAINTER Mar 30, 2025 11:41
[2025-03-30] MEDS: ERTAPENEM SOD INJ 1 GM in SODIUM CHL 0.9% 50 ML IV ONE (12:46)
[2025-03-30] MEDS: SODIUM CHLORIDE 0.9% 1,000 ML IV SCH (12:51)
--- NOTE | 2025-03-30 22:34 | DVHINCON2 ---
Date of service: Mar 30, 2025 Referring Physician Wendy Reason for Consultation Weakness History of Present Illness Ms. ciro kaufman is a 83 years old right-handed female with a history of hypertension, dyslipidemia, hypothyroidism, stroke, she came to the [facility] on 03/29/2025 from the [facility] with a chief complaint of weakness for one week. At this time, she is alert and oriented x3, mildly confused, not very good historian, but with time spent with her, I obtained the following history. I have also talked to her sister at [phone] I saw her on 09/08/2023 for stroke (MRI positive), 03/06/2024 for stroke She has been in her SNF for about one year, but she was able to walk until one weeks ago when she developed pain in both lower extremities, as a result, she has problem to move the leg and stopped walking. She reports that she still can hold her bladder for some time. She denies pain in the back. She said her doctor suspected bone infection The following are from my consultation note dated on 03/06/2024 On 03/06/2024, when she was sitting in a chair with her sister, she developed d iscomfort, abdominal pain, and she thought she needed bathroom, when her family was helping her to return to inside the house, she had nausea, vomiting, her speech was slurry, she had a blank staring face, but she did not pass out, have chest pain, hot feeling. She denied new focal weakness numbness On 06/18/2023, after her cataract surgery, the patient was mentally altered on the way home in her sister's car, her speech was too slurry to understand, she also had a nausea, vomiting, when the EMS came over, her blood pressure was very high, she was taken to the [facility] where she was transferred to the [facility] because of "hairline" hemorrhage, where she was said to have dehydration, UTI, kidney disease, she stayed in the [facility] for 18 days. She was discharged with statin and aspirin 325 mg daily, since the stroke, the patient had nightly to walk events so she has reasonably good muscle power in the left extremities Urinalysis, 03/29/2025: WBC: 320, urine leukocyte esterase: 3+ CBC 03/30/2025: Unremarkable TG/HDL/LDL/HDL, 03/30/2025: 0.5/156/62/90 TG/CHO L/LDL/HDL, 08/2023: 108/102/37/45, 03/06/24:138/128/57/49 Vitamin B12, 08/2023: 308 Folic acid, 09/08/2023: 11.2 TSH, 08/2023: 4.77 KATHLEEN 09/09/2023: No evidence of a valve vegetation was identified. Overall, preserved left ventricular systolic function with left ventricular hypertrophy. Rest of the examination showed a small atrial septal aneurysm with small PFO on bubble study. Carotid Doppler, 03/06/24: 1. No hemodynamically significant stenosis noted in the right carotid system. 2. No hemodynamically significant stenosis noted in the left carotid system CT head, March 06, 2024: 1. No acute intracranial abnormality or significant interval change compared to 09/07/2023. 2. Right posterior occipitoparietal lobe encephalomalacia. 3. Moderate cerebral atrophy with chronic small vessel ischemic disease MRI head, 09/07/2023: 1. Multifocal tiny areas of restricted diffusion in both cerebral hemispheres and both cerebellar hemispheres, assisted with acute/subacute ischemia. Embolic phenomena not excluded. 2. Encephalomalacia in the right occipital lobe with peripheral areas of restricted diffusion, which may also be due to areas of acute/subacute ischemia. 3. Posterior fossa arachnoid cyst adjacent to the anterior aspect of the left cerebellar hemisphe re. 4. Additional findings as detailed above MRI, head 03/07/2024: 1. No evidence of an acute intracranial abnormality. 2. 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 3. Chronic small vessel ischemic disease.4. Mild left mastoid effusion. Past Medical History Hypertension, dyslipidemia, hypothyroidism Past Surgical History Cholecystectomy, Hysterectomy Family History: Patient reports no known family medical history. Family History Hypertension Social History She is nontobacco smoker, no history of alcohol recreational substance abuse Allergies: Coded Allergies: NO KNOWN ALLERGIES (Unverified , 09/06/23) Home Meds Active Scripts Aspirin (Aspirin Low Dose) 81 Mg Tab, 81 MG PO DAILY for 90 Days, #90 TAB 3 Refills Prov:KAVITHA REDDING RESIDENT 03/09/24 Reported Medications Metronidazole (Metronidazole) 500 Mg Tab, 1 TAB PO TID 03/29/25 Carvedilol (Carvedilol) 12.5 Mg Tab, 1 TAB PO BID 03/29/25 Losartan Potassium (Losartan Potassium) 25 Mg Tab, 1 TAB PO DAILY 03/29/25 Potassium Chloride (Klor-Con M20) 20 Meq Tab, 1 TAB PO DAILY 03/08/24 Levothyroxine Sodium (Levothyroxine Sodium) 75 Mcg Tab, 1 TAB PO DAILY, #30 TAB 5 Refills 09/08/23 Atorvastatin Calcium (ATORVASTATIN CALCIUM) 40 Mg Tab, 1 TAB PO DAILY, #30 TAB 5 Refills 09/08/23 Nifedipine (Nifedipine Er) 60 Mg Tab, 1 TAB PO DAILY, #30 TAB 5 Refills 09/08/23 Discontinued Reported Medications Amiloride HCl (Amiloride Hydrochloride) 5 Mg Tab, 5 MG PO, TAB 09/08/23 Aspirin Buffered (Paramjit Carb-Mag (Aspirin 325 mg) 1 Tab Tab, 1 TAB PO, TAB 09/08/23 Current Medications Current Medications Medications (Trade) Dose Ordered Sig/Froilan Route PRN Reason Start Time Stop Time Status Last Admin Aspirin (Ecotrin Enteric Coated Tablet) 81 mg DAILY PO 03/30/25 10:00 03/30/25 09:55 Patient Own Medication 1 tab DAILY PO 03/30/25 10:00 UNV Patient Own Medication 1 tab DAILY PO 03/30/25 10:00 UNV Patient Own Medication 1 tab DAILY PO 03/30/25 10:00 UNV Losartan Potassium (Cozaar Tablet) 25 mg DAILY PO 03/30/25 10:00 03/30/25 09:54 Nifedipine (Procardia Xl (Time-Release)) 60 mg DAILY PO 03/30/25 10:00 03/30/25 09:55 Levothyroxine Sodium (Synthroid Tablet) 25 mcg QAM PO 03/30/25 07:00 03/30/25 06:15 Levothyroxine Sodium (Synthroid Tablet) 50 mcg QAM PO 03/30/25 07:00 03/30/25 06:15 Ceftriaxone Sodium 50 ml @ 100 mls/hr DAILY@09 IV 03/30/25 09:00 03/30/25 11:29 DC 03/30/25 09:53 Sodium Chloride 1,000 ml @ 75 mls/hr [id number] IV 03/30/25 11:30 03/30/25 12:51 Ertapenem 1 gm/ Sodium Chloride 50 ml @ 100 mls/hr DAILY IV 03/31/25 10:00 Review of Systems As above, the other systems are negative Vital Signs Vital Signs Date Time Temp Pulse Resp B/P (MAP) Pulse Ox O2 Delivery O2 Flow Rate FiO2 03/30/25 21:58 69 126/58 03/30/25 21:00 83.9 14 95 83.9 03/30/25 07:40 Room Air* 0 21 Physical Exam GENERAL EXAM: General: the patient is well developed and nourished. No acute distress. HEENT: Normocephalic, neck is supple, no carotid bruits. No mass. RESPIRATORY: Normal respiratory effort with symmetrical lung expansion. Lungs clear to auscultation. CARDIOVASCULAR: Regular rate and rhythm with no murmurs. S1, S2. ABDOMEN: Soft, nontender, normal bowel sound Orbital tenderness to palpation in bilateral thighs, legs, NEUROLOGICAL: MENTAL STATUS: HPI SPEECH, LANGUAGE, HIGHER CORTICAL FUNCTION: no aphasia or dysathria. CRANIAL NERVES: #2: Left homonymous hemianopsia. The optic discs were sharp. #3,4,6: Pupils are equal, round and reactive. EOMs full and conjugate. No nystagmus. #5: Facial sensation intact in all three divisions bilaterally. Mandibular strength intact. #7: Facial muscles symmetrical and strength intact. #8: Hearing grossly normal to voice. #9,10: Uvula and soft palate rise in the midline. Swallow and voice are normal. #11: Trapezius and sternomastoid strength intact bilaterally. #12: Tongue midline. No fasciculations or atrophy. SENSATION: Sensation to touch and pinprick is fine, no sensory level MOTOR: Normal tone in the upper and lower extremity. Normal muscle bulk. No fasciculations. No abnormal movements or posturing. Muscle power is: Upper extremities: Rt: 4/5, Lt: 3-4/5. Lower extremities: 2/5 REFLEXES: Deep tendon reflexes are symmetric. No pathological reflexes. CEREBELLAR/COORDINATION: Deferred, but no intentional tremors in the hands GAIT/STATION: deferred Labs/Diagnostic Data Labs Test 03/30/25 05:28 03/29/25 13:09 03/29/25 12:45 03/29/25 09:41 Range/Units White Blood Count 7.9 4.4-10.8 10^3/uL Red Blood Count 4.15 4.0-5.20 10^6/uL Hemoglobin 13.3 12.2-16.2 g/dL Hematocrit 39.2 36.0-46.0 % Mean Corpuscular Volume 94.4 80.0-100.0 fL Mean Corpuscular Hemoglobin 32.0 28.0-32.0 pg Mean Corpuscular Hemoglobin Concent 33.9 32.0-36.0 g/dL Red Cell Distribution Width 16.5 H 11.8-14.3 % Platelet Count 258 140-450 10^3/uL Mean Platelet Volume 7.9 6.9-10.8 fL Neutrophils (%) (Auto) 79.3 37.0-80.0 % Lymphocytes (%) (Auto) 13.5 10.0-50.0 % Monocytes (%) (Auto) 5.1 0.0-12.0 % Eosinophils (%) (Auto) 1.5 0.0-7.0 % Basophils (%) (Auto) 0.6 0.0-2.0 % Neutrophils # (Auto) 6.3 1.6-8.6 10 ^3/uL Lymphocytes # (Auto) 1.1 0.4-5.4 10 ^3/uL Monocytes # (Auto) 0.4 0-1.3 10 ^3/uL Eosinophils # (Auto) 0.1 0-0.8 10 ^3/uL Basophils # (Auto) 0 0-0.2 10 ^3/uL Nucleated Red Blood Cells 0.1 % Sodium Level 144 136-145 mmol/L Potassium Level 4.3 3.5-5.1 mmol/L Chloride Level 113 H 98-107 mmol/L Carbon Dioxide Level 20 20-31 mmol/L Anion Gap 11 5-15 Blood Urea Nitrogen 13 9-23 mg/dL Creatinine 0.84 0.550-1.02 mg/dL Glomerular Filtration Rate Calc 68 >90 mL/min BUN/Creatinine Ratio 15.5 10.0-20.0 Serum Glucose 107 H 74-106 mg/dL Calcium Level 9.8 8.7-10.4 mg/dL Total Bilirubin 0.5 0.2-1.0 mg/dL Aspartate Amino Transferase (AST) 156 H 13-40 U/L Alanine Aminotransferase (ALT) 62 H 7-40 U/L Alkaline Phosphatase 90 46-116 U/L Total Protein 6.7 5.7-8.2 g/dL Albumin 3.7 3.2-4.8 g/dL Troponin I High Sensitivity 236 *H </=34 ng/L Urine Color Light-orange Yellow Urine Clarity Turbid H Clear Urine pH 6.0 5.0-9.0 Urine Specific [place] 1.018 1.001-1.035 Urine Protein Negative Negative Urine Ketones Negative Negative Urine Blood Negative Negative /uL Urine Nitrite Negative Negative Urine Bilirubin Negative Negative Urine Urobilinogen Normal Negative mg/dL Urine Leukocyte Esterase 3+ Negative /uL Urine RBC 11 0 - 4 /hpf Urine Microscopic WBC 320 H 0-5 /HPF Urine Squamous Epithelial Cells Few <5 /hpf Urine Bacteria Few H None Seen /hpf Urine Mucus Few None Seen Urine Glucose Normal Normal mg/dL B-Type Natriuretic Peptide 12.78 0-100 pg/mL Microbiology Date/Time Source Procedure Growth Status 03/29/25 21:55 Nose MRSA Screen - Final Complete Assessment Weakness in the lower extremities Secondary to local pain Pain in the legs, ? Etiology unclear Chronic multiple strokes, 06/18/2024 Left homonymous hemianopsia secondary to chronic stroke UTI Plan/Recommendation Monitoring Supportive treatment Telemetry Bone scan Aspirin 81 mg daily Lipitor 40 mg daily Up to chair Physical therapy More recommendation per clinical course Progress: Poor This medical document was created using an electronic medical record system with [employer] dictation system. Although this document has been carefully reviewed, there may still be some phonetic and typographical errors. These areas are purely typographical due to imperfections of the software programs, and do not reflect any compromise in the patient's medical care Plan discussed with: Other MARIA D CADE MD Mar 30, 2025 22:34
[2025-03-31] VITALS (10 sets, daily range): BP systolic 103–142; BP diastolic 61–73; PULSE 62–82; RESP 14–18; TEMP 97.8–98.4; O2SAT 95–98
[2025-03-31] MEDS: ERTAPENEM SOD INJ 1 GM in SODIUM CHL 0.9% 50 ML IV SCH (09:39)
--- NOTE | 2025-03-31 10:57 | DVHPN2 ---
Progress Note - Dictate Date Seen: Mar 31, 2025 Medical Necessity Reason Pt with a Central, PICC or Fol: Yes The following are medically ne: Navarrete Catheter Reason for navarrete catheter: Strict I&O vital signs Vital Sign Date Time Temp Pulse Resp B/P (MAP) Pulse Ox O2 Delivery O2 Flow Rate FiO2 03/31/25 09:43 142/73 03/31/25 09:43 79 03/31/25 09:00 98.4 16 98 98.4 03/31/25 08:05 Room Air* 0 21 Total Intake and Output 03/30/25 03/30/25 03/31/25 15:00 23:00 07:00 Intake Total 100 ml 150 ml 100 ml Output Total 1050 ml 75 ml 850 ml Balance -950 ml 75 ml -750 ml medications Current Medications Medications Dose Ordered Sig/Froilan Route Start Time Stop Time Status Last Admin Dose Admin Acetaminophen/ Hydrocodone Bitart 1 tab Q4HP PRN PO 03/29/25 12:30 03/30/25 17:48 1 TAB Ondansetron HCl 4 mg Q4HP PRN IV 03/29/25 12:30 Docusate Sodium 100 mg BIDPRN PRN PO 03/29/25 12:30 Acetaminophen 650 mg Q6HP PRN PO 03/29/25 12:30 Nitroglycerin 0.4 mg Q5MINP PRN SL 03/29/25 12:30 Morphine Sulfate 2 mg Q30M PRN IV 03/29/25 12:30 UNV Aspirin 81 mg DAILY PO 03/30/25 10:00 03/31/25 09:44 81 MG Patient Own Medication 1 tab DAILY PO 03/30/25 10:00 UNV Patient Own Medication 1 tab DAILY PO 03/30/25 10:00 UNV Patient Own Medication 1 tab DAILY PO 03/30/25 10:00 UNV Carvedilol 12.5 mg BID PO 03/29/25 22:00 03/31/25 09:43 12.5 MG Losartan Potassium 25 mg DAILY PO 03/30/25 10:00 03/31/25 09:43 25 MG Atorvastatin Calcium 40 mg HS PO 03/29/25 22:00 03/30/25 21:58 40 MG Nifedipine 60 mg DAILY PO 03/30/25 10:00 03/31/25 09:42 60 MG Levothyroxine Sodium 25 mcg QAM PO 03/30/25 07:00 03/31/25 06:06 25 MCG Levothyroxine Sodium 50 mcg QAM PO 03/30/25 07:00 03/31/25 06:06 50 MCG Morphine Sulfate 2 mg Q30M PRN IV 03/29/25 13:30 Nystatin 5 ml QID MT 03/29/25 18:00 03/31/25 05:58 5 ML Sodium Chloride 1,000 ml @ 75 mls/hr [id number] IV 03/30/25 11:30 03/31/25 00:50 75 MLS/HR Ertapenem 1 gm/ Sodium Chloride 50 ml @ 100 mls/hr DAILY IV 03/31/25 10:00 03/31/25 09:39 100 MLS/HR objective General Appearance: alert, no distress HEENT: EOMI, PERRLA, normal external inspect of ears, no icterus, no nasal drainage Neck: no carotid bruit, no jugular venous distention (JVD), no lymphadenopathy Chest: normal thorax Respiratory: clear to auscultation, normal air movement Cardiovascular: regular rate and rhythm, no diastolic murmur, no jugular venous distention (JVD), no rub, no systolic murmur Abdominal: soft, no hepatomegaly, no mass, no splenomegaly, no tenderness Musculoskeletal: no joint tenderness, no swelling Extremities: normal pulses, no calf tenderness, no clubbing, no cyanosis, no edema Skin: no bruising, no jaundice, no rash Neurological: alert, No focal deficit laboratory and microbiology Laboratory Tests 03/30/25 05:28 Test 03/30/25 05:28 Range/Units Serum Glucose 107 H 74-106 mg/dL Problem List -Metabolic encephalopathy Neurology consult, monitoring -Generalized weakness PT eval - Acute cystitis without hematuria IV antibiotics, monitoring - NSTEMI type II Cardiology consult, medication, monitoring - Hyperlipidemia - Hypothyroidism Medication, monitoring - History of CVA with residual weakness Neurology consult, monitoring - Oral thrush Nystatin swish and swallow Assessment/Plan Subjective Patient is awake and alert. Objective The patient states she wants to return to [facility]. Patient was admitted for generalized weakness. She does have a mild UTI. Patient was seen by neurology. Patient is at her baseline. Bone scan was ordered. Plan Continue current treatment. Consult social organization professor. DC planning back to [facility] for tomorrow. Plan discussed with: Patient, Other KAYLEE COLLINS NP Mar 31, 2025 10:57
--- NOTE | 2025-03-31 21:19 | DVHPN2 ---
Progress Note - Dictate Date Seen: Mar 31, 2025 Medical Necessity Reason Pt with a Central, PICC or Fol: Yes The following are medically ne: Navarrete Catheter Reason for navarrete catheter: Strict I&O Subjective Ms. ciro kaufman is a 83 years old right-handed female with a history of hypertension, dyslipidemia, hypothyroidism, stroke, she came to the [facility] on 03/29/2025 from the [facility] with a chief complaint of weakness for one week. I saw her on 09/08/2023 for stroke (MRI positive), 03/06/2024 for stroke I have seen and examined the patient, talked to her nurse. She is doing better today, she is oriented x3, she can move the legs more RN: She did not report pain when she was repositioned Urinalysis, 03/29/2025: WBC: 320, urine leukocyte esterase: 3+ CBC 03/30/2025: Unremarkable TG/HDL/LDL/HDL, 03/30/2025: 0.5/156/62/90 TG/CHO L/LDL/HDL, 08/2023: 108/102/37/45, 03/06/24:138/128/57/49 Vitamin B12, 08/2023: 308 Folic acid, 09/08/2023: 11.2 TSH, 08/2023: 4.77 KATHLEEN 09/09/2023: No evidence of a valve vegetation was identified. Overall, preserved left ventricular systolic function with left ventricular hypertrophy. Rest of the examination showed a small atrial septal aneurysm with small PFO on bubble study. Carotid Doppler, 03/06/24: 1. No hemodynamically significant stenosis noted in the right carotid system. 2. No hemodynamically significant stenosis noted in the left carotid system CT head, March 06, 2024: 1. No acute intracranial abnormality or significant interval change compared to 09/07/2023. 2. Right posterior occipitoparietal lobe encephalomalacia. 3. Moderate cerebral atrophy with chronic small vessel ischemic disease MRI head, 09/07/2023: 1. Multifocal tiny areas of restricted diffusion in both cerebral hemispheres and both cerebellar hemispheres, assisted with acute/subacute ischemia. Embolic phenomena not excluded. 2. Encephalomalacia in the right occipital lobe with peripheral areas of restricted diffusion, which may also be due to areas of acute/subacute ischemia. 3. Posterior fossa arachnoid cyst adjacent to the anterior aspect of the left cerebellar hemisphere. 4. Additional findings as detailed above MRI, head 03/07/2024: 1. No evidence of an acute intracranial abnormality. 2. 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 3. Chronic small vessel ischemic disease.4. Mild left mastoid effusion. vital signs Vital Sign Date Time Temp Pulse Resp B/P (MAP) Pulse Ox O2 Delivery O2 Flow Rate FiO2 03/31/25 21:00 97.8 81 18 103/61 (75) 95 97.8 03/31/25 20:00 Room Air* 0 21 Total Intake and Output 03/30/25 03/30/25 03/31/25 15:00 23:00 07:00 Intake Total 100 ml 150 ml 100 ml Output Total 1050 ml 75 ml 850 ml Balance -950 ml 75 ml -750 ml medications Current Medications Medications Dose Ordered Sig/Froilan Route Start Time Stop Time Status Last Admin Dose Admin Acetaminophen/ Hydrocodone Bitart 1 tab Q4HP PRN PO 03/29/25 12:30 03/30/25 17:48 1 TAB Ondansetron HCl 4 mg Q4HP PRN IV 03/29/25 12:30 Docusate Sodium 100 mg BIDPRN PRN PO 03/29/25 12:30 Acetaminophen 650 mg Q6HP PRN PO 03/29/25 12:30 Nitroglycerin 0.4 mg Q5MINP PRN SL 03/29/25 12:30 Morphine Sulfate 2 mg Q30M PRN IV 03/29/25 12:30 UNV Aspirin 81 mg DAILY PO 03/30/25 10:00 03/31/25 09:44 81 MG Patient Own Medication 1 tab DAILY PO 03/30/25 10:00 UNV Patient Own Medication 1 tab DAILY PO 03/30/25 10:00 UNV Patient Own Medication 1 tab DAILY PO 03/30/25 10:00 UNV Carvedilol 12.5 mg BID PO 03/29/25 22:00 03/31/25 09:43 12.5 MG Losartan Potassium 25 mg DAILY PO 03/30/25 10:00 03/31/25 09:43 25 MG Atorvastatin Calcium 40 mg HS PO 03/29/25 22:00 03/30/25 21:58 40 MG Nifedipine 60 mg DAILY PO 03/30/25 10:00 03/31/25 09:42 60 MG Levothyroxine Sodium 25 mcg QAM PO 03/30/25 07:00 03/31/25 06:06 25 MCG Levothyroxine Sodium 50 mcg QAM PO 03/30/25 07:00 03/31/25 06:06 50 MCG Morphine Sulfate 2 mg Q30M PRN IV 03/29/25 13:30 Nystatin 5 ml QID MT 03/29/25 18:00 03/31/25 18:25 5 ML Sodium Chloride 1,000 ml @ 75 mls/hr [id number] IV 03/30/25 11:30 03/31/25 15:40 75 MLS/HR Ertapenem 1 gm/ Sodium Chloride 50 ml @ 100 mls/hr DAILY IV 03/31/25 10:00 03/31/25 09:39 100 MLS/HR objective General: the patient is well developed and nourished. No acute distress. Obvious tenderness to palpation in bilateral thighs, legs, shoulders, neck, and whole back MENTAL STATUS: HPI SPEECH, LANGUAGE, HIGHER CORTICAL FUNCTION: no aphasia or dysathria. CRANIAL NERVES: Left homonymous hemianopsia. The optic discs were sharp. Pupils are equal, round and reactive. EOMs full and conjugate. No nystagmus. Facial sensation intact in all three divisions bilaterally. Mandibular strength intact. Facial muscles symmetrical and strength intact. SENSATION: Sensation to touch and pinprick is fine, no sensory level MOTOR: Normal tone in the upper and lower extremity. Normal muscle bulk. No fasciculations. No abnormal movements or posturing. Muscle power is: Upper extremities: Rt: 4/5, Lt: 3-4/5. Lower extremities: 3/5 REFLEXES: Deep tendon reflexes are symmetric. No pathological reflexes. CEREBELLAR/COORDINATION: Deferred, but no intentional tremors in the hands GAIT/STATION: deferred laboratory and microbiology Laboratory Tests 03/30/25 05:28 Test 03/30/25 05:28 Range/Units Serum Glucose 107 H 74-106 mg/dL Problem List Weakness in the lower extremities Secondary to local pain Pain in the legs, ? Etiology unclear Chronic multiple strokes, 06/18/2024 Left homonymous hemianopsia secondary to chronic stroke UTI Assessment/Plan Monitoring Supportive treatment Telemetry Bone scan Aspirin 81 mg daily Lipitor 40 mg daily Up to chair Physical therapy More recommendation per clinical course This medical document was created using an electronic medical record system with [employer] computerized dictation system. Although this document has been carefully reviewed, there may still be some phonetic and typographical errors. These areas are purely typographical due to imperfections of the software programs, and do not reflect any compromise in the patient's medical care Prognosis poor Plan discussed with: Patient, Other MARIA D CADE MD Mar 31, 2025 21:19
[2025-04-01] VITALS (8 sets, daily range): BP systolic 92–110; BP diastolic 51–62; PULSE 60–79; RESP 16–18; TEMP 96–98.4; O2SAT 92–97
--- NOTE | 2025-04-01 11:53 | DVHPN2 ---
Progress Note - Dictate Date Seen: Apr 01, 2025 Medical Necessity Reason Pt with a Central, PICC or Fol: Yes The following are medically ne: Navarrete Catheter Reason for navarrete catheter: Strict I&O vital signs Vital Sign Date Time Temp Pulse Resp B/P (MAP) Pulse Ox O2 Delivery O2 Flow Rate FiO2 04/01/25 09:55 106/56 04/01/25 09:55 72 04/01/25 08:59 97.6 17 94 97.6 04/01/25 08:00 Room Air* 0 21 Total Intake and Output 03/31/25 03/31/25 04/01/25 15:00 23:00 07:00 Intake Total 1400 ml 1180 ml Output Total 600 ml 500 ml Balance 800 ml 680 ml medications Current Medications Medications Dose Ordered Sig/Froilan Route Start Time Stop Time Status Last Admin Dose Admin Acetaminophen/ Hydrocodone Bitart 1 tab Q4HP PRN PO 03/29/25 12:30 04/01/25 11:21 1 TAB Ondansetron HCl 4 mg Q4HP PRN IV 03/29/25 12:30 Docusate Sodium 100 mg BIDPRN PRN PO 03/29/25 12:30 Acetaminophen 650 mg Q6HP PRN PO 03/29/25 12:30 Nitroglycerin 0.4 mg Q5MINP PRN SL 03/29/25 12:30 Morphine Sulfate 2 mg Q30M PRN IV 03/29/25 12:30 UNV Aspirin 81 mg DAILY PO 03/30/25 10:00 04/01/25 09:56 81 MG Patient Own Medication 1 tab DAILY PO 03/30/25 10:00 UNV Patient Own Medication 1 tab DAILY PO 03/30/25 10:00 UNV Patient Own Medication 1 tab DAILY PO 03/30/25 10:00 UNV Carvedilol 12.5 mg BID PO 03/29/25 22:00 04/01/25 09:55 12.5 MG Losartan Potassium 25 mg DAILY PO 03/30/25 10:00 04/01/25 09:55 25 MG Atorvastatin Calcium 40 mg HS PO 03/29/25 22:00 03/31/25 22:06 40 MG Nifedipine 60 mg DAILY PO 03/30/25 10:00 04/01/25 09:55 60 MG Levothyroxine Sodium 25 mcg QAM PO 03/30/25 07:00 04/01/25 06:02 25 MCG Levothyroxine Sodium 50 mcg QAM PO 03/30/25 07:00 04/01/25 06:02 50 MCG Morphine Sulfate 2 mg Q30M PRN IV 03/29/25 13:30 Nystatin 5 ml QID MT 03/29/25 18:00 04/01/25 11:21 5 ML Sodium Chloride 1,000 ml @ 75 mls/hr [id number] IV 03/30/25 11:30 04/01/25 03:40 75 MLS/HR Ertapenem 1 gm/ Sodium Chloride 50 ml @ 100 mls/hr DAILY IV 03/31/25 10:00 04/01/25 09:54 100 MLS/HR objective General Appearance: alert, no distress HEENT: EOMI, PERRLA, normal external inspect of ears, no icterus, no nasal drainage Neck: no carotid bruit, no jugular venous distention (JVD), no lymphadenopathy Chest: normal thorax Respiratory: clear to auscultation, normal air movement Cardiovascular: regular rate and rhythm, no diastolic murmur, no jugular venous distention (JVD), no rub, no systolic murmur Abdominal: soft, no hepatomegaly, no mass, no splenomegaly, no tenderness Musculoskeletal: no joint tenderness, no swelling Extremities: normal pulses, no calf tenderness, no clubbing, no cyanosis, no edema Skin: no bruising, no jaundice, no rash Neurological: alert, No focal deficit laboratory and microbiology Laboratory Tests 03/30/25 05:28 Test 03/30/25 05:28 Range/Units Serum Glucose 107 H 74-106 mg/dL Problem List -Metabolic encephalopathy Neurology consult, monitoring -Generalized weakness PT eval - Acute cystitis without hematuria IV antibiotics, monitoring - NSTEMI type II Cardiology consult, medication, monitoring - Hyperlipidemia - Hypothyroidism Medication, monitoring - History of CVA with residual weakness Neurology consult, monitoring - Oral thrush Nystatin swish and swallow Assessment/Plan Subjective: Patient is awake and alert. Objective: I spoke with patient and patients sister at bedside. Patient was admitted for progressive weakness for the past 2 weeks at group home facility. Patient was found to have acute cystitis and was started on antibiotics. Patient was seen by neurology. Patient has a history of EtOH use in the past and a history of CVA last year. Plan: Continue current treatment. Continue physical therapy. Continue antibiotics as tolerated. Dietary Evaluation Review Comments: Cardiac diet texture as tolerated collect an updated Lipid profile Expected Outcomes/Goals: meeting 75% of her needs Plan discussed with: Patient, Other KAYLEE COLLINS [employer] Apr 01, 2025 11:53
[2025-04-01] MEDS: GABAPENTIN 300 MG CAP PO SCH (13:39)
--- NOTE | 2025-04-01 19:21 | DVHPN2 ---
Progress Note - Dictate Date Seen: Apr 01, 2025 Medical Necessity Reason Pt with a Central, PICC or Fol: Yes The following are medically ne: Navarrete Catheter Reason for navarrete catheter: Strict I&O Subjective Ms. ciro kaufman is a 83 years old right-handed female with a history of hypertension, dyslipidemia, hypothyroidism, stroke, she came to the [facility] on 03/29/2025 from the [facility] with a chief complaint of weakness for one week. I saw her on 09/08/2023 for stroke (MRI positive), 03/06/2024 for stroke I have seen and examined the patient, talked to her nurse. She is doing fine, she has a diffuse body pain again, oriented x3, On physical examination, the tenderness to palpation is less intense in the back According to Wendy's note, the patient has a history of alcohol abuse Urinalysis, 03/29/2025: WBC: 320, urine leukocyte esterase: 3+ CBC 03/30/2025: Unremarkable TG/HDL/LDL/HDL, 03/30/2025: 0.5/156/62/90 TG/CHO L/LDL/HDL, 08/2023: 108/102/37/45, 03/06/24:138/128/57/49 Vitamin B12, 08/2023: 308 Folic acid, 09/08/2023: 11.2 TSH, 08/2023: 4.77 KATHLEEN 09/09/2023: No evidence of a valve vegetation was identified. Overall, preserved left ventricular systolic function with left ventricular hypertrophy. Rest of the examination showed a small atrial septal aneurysm with small PFO on bubble study. Carotid Doppler, 03/06/24: 1. No hemodynamically significant stenosis noted in the right carotid system. 2. No hemodynamically significant stenosis noted in the left carotid system CT head, March 06, 2024: 1. No acute intracranial abnormality or significant interval change compared to 09/07/2023. 2. Right posterior occipitoparietal lobe encephalomalacia. 3. Moderate cerebral atrophy with chronic small vessel ischemic disease MRI head, 09/07/2023: 1. Multifocal tiny areas of restricted diffusion in both cerebral hemispheres and both cerebellar hemispheres, assisted with acute/subacute ischemia. Embolic phenomena not excluded. 2. Encephalomalacia in the right occipital lobe with peripheral areas of restricted diffusion, which may also be due to areas of acute/subacute ischemia. 3. Posterior fossa arachnoid cyst adjacent to the anterior aspect of the left cerebellar hemisphere. 4. Additional findings as detailed above MRI, head 03/07/2024: 1. No evidence of an acute intracranial abnormality. 2. 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 3. Chronic small vessel ischemic disease.4. Mild left mastoid effusion. vital signs Vital Sign Date Time Temp Pulse Resp B/P (MAP) Pulse Ox O2 Delivery O2 Flow Rate FiO2 04/01/25 16:48 97.1 66 16 100/51 (67) 93 97.1 04/01/25 08:00 Room Air* 0 21 Total Intake and Output 03/31/25 03/31/25 04/01/25 15:00 23:00 07:00 Intake Total 1400 ml 1180 ml Output Total 600 ml 500 ml Balance 800 ml 680 ml medications Current Medications Medications Dose Ordered Sig/Froilan Route Start Time Stop Time Status Last Admin Dose Admin Acetaminophen/ Hydrocodone Bitart 1 tab Q4HP PRN PO 03/29/25 12:30 04/01/25 17:10 1 TAB Ondansetron HCl 4 mg Q4HP PRN IV 03/29/25 12:30 Docusate Sodium 100 mg BIDPRN PRN PO 03/29/25 12:30 Acetaminophen 650 mg Q6HP PRN PO 03/29/25 12:30 Nitroglycerin 0.4 mg Q5MINP PRN SL 03/29/25 12:30 Morphine Sulfate 2 mg Q30M PRN IV 03/29/25 12:30 UNV Aspirin 81 mg DAILY PO 03/30/25 10:00 04/01/25 09:56 81 MG Patient Own Medication 1 tab DAILY PO 03/30/25 10:00 UNV Patient Own Medication 1 tab DAILY PO 03/30/25 10:00 UNV Patient Own Medication 1 tab DAILY PO 03/30/25 10:00 UNV Carvedilol 12.5 mg BID PO 03/29/25 22:00 04/01/25 09:55 12.5 MG Losartan Potassium 25 mg DAILY PO 03/30/25 10:00 04/01/25 09:55 25 MG Atorvastatin Calcium 40 mg HS PO 03/29/25 22:00 03/31/25 22:06 40 MG Nifedipine 60 mg DAILY PO 03/30/25 10:00 04/01/25 09:55 60 MG Levothyroxine Sodium 25 mcg QAM PO 03/30/25 07:00 04/01/25 06:02 25 MCG Levothyroxine Sodium 50 mcg QAM PO 03/30/25 07:00 04/01/25 06:02 50 MCG Morphine Sulfate 2 mg Q30M PRN IV 03/29/25 13:30 Nystatin 5 ml QID MT 03/29/25 18:00 04/01/25 17:00 5 ML Sodium Chloride 1,000 ml @ 75 mls/hr [id number] IV 03/30/25 11:30 04/01/25 17:00 75 MLS/HR Ertapenem 1 gm/ Sodium Chloride 50 ml @ 100 mls/hr DAILY IV 03/31/25 10:00 04/01/25 09:54 100 MLS/HR Gabapentin 300 mg TID PO 04/01/25 14:00 04/01/25 13:39 300 MG objective General: the patient is well developed and nourished. No acute distress. Obvious tenderness to palpation in bilateral thighs, legs, shoulders, neck, and whole back MENTAL STATUS: HPI SPEECH, LANGUAGE, HIGHER CORTICAL FUNCTION: no aphasia or dysathria. CRANIAL NERVES: Left homonymous hemianopsia. The optic discs were sharp. Pupils are equal, round and reactive. EOMs full and conjugate. No nystagmus. Facial sensation intact in all three divisions bilaterally. Mandibular strength intact. Facial muscles symmetrical and strength intact. SENSATION: Sensation to touch and pinprick is fine, no sensory level MOTOR: Normal tone in the upper and lower extremity. Normal muscle bulk. No fasciculations. No abnormal movements or posturing. Muscle power is: Upper extremities: Rt: 4/5, Lt: 3-4/5. Lower extremities: 3/5 REFLEXES: Deep tendon reflexes are symmetric. No pathological reflexes. CEREBELLAR/COORDINATION: Deferred, but no intentional tremors in the hands GAIT/STATION: deferred laboratory and microbiology Laboratory Tests 03/30/25 05:28 Test 03/30/25 05:28 Range/Units Serum Glucose 107 H 74-106 mg/dL Problem List Weakness in the lower extremities Secondary to local pain Pain in the legs, ? 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 Although this document has been carefully reviewed, there may still be some phonetic and typographical errors. These areas are purely typographical due to imperfections of the software programs, and do not reflect any compromise in the patient's medical care Prognosis poor Dietary Evaluation Review Comments: Cardiac diet texture as tolerated collect an updated Lipid profile Expected Outcomes/Goals: meeting 75% of her needs Plan discussed with: Other MARIA D CADE MD Apr 01, 2025 19:21
--- NOTE | 2025-04-01 19:27 | DVH ---
EXAM: NM BONE WHOLE BODY History: Bilateral leg pain Comparison Study: None TECHNIQUE: At approximately 3 hours following intravenous administration 25.2 mCi of Tc-99m MDP, ante rior and posterior whole body planar images were obtained. FINDINGS: No suspicious foci of tracer activity to suggest osteoblastic metastases. Increased radiotracer uptak e at the level of L3, likely degenerative. Physiologic radiotracer distribution in bilateral kidneys and urinary bladder. Degenerative changes in the shoulders, hips, knees, and ankles. Radiotracer contamination noted over the left hip. Curvilinear radiotracer uptake noted along the rig ht foot corresponds to navarrete catheter bag, per technologist. IMPRESSION: 1. No scintigraphic evidence of osteoblastic metastases.
[2025-04-02] VITALS (8 sets, daily range): BP systolic 92–107; BP diastolic 48–70; PULSE 61–75; RESP 15–18; TEMP 96.7–97.9; O2SAT 91–97
[2025-04-02] MEDS: ACETAMINOPHEN 325 MG TAB PO PRN (09:17)
--- NOTE | 2025-04-02 17:20 | DVHPN2 ---
Progress Note - Dictate Date Seen: Apr 02, 2025 Medical Necessity Reason Pt with a Central, PICC or Fol: Yes The following are medically ne: Navarrete Catheter Reason for navarrete catheter: Strict I&O vital signs Vital Sign Date Time Temp Pulse Resp B/P (MAP) Pulse Ox O2 Delivery O2 Flow Rate FiO2 04/02/25 16:48 97.9 63 16 106/55 (72) 94 97.9 04/02/25 08:00 Room Air* 0 21 Total Intake and Output 04/01/25 04/01/25 04/02/25 15:00 23:00 07:00 Intake Total 50 ml 1400 ml 1100 ml Output Total 350 ml 650 ml Balance 50 ml 1050 ml 450 ml medications Current Medications Medications Dose Ordered Sig/Froilan Route Start Time Stop Time Status Last Admin Dose Admin Acetaminophen/ Hydrocodone Bitart 1 tab Q4HP PRN PO 03/29/25 12:30 04/02/25 17:16 1 TAB Ondansetron HCl 4 mg Q4HP PRN IV 03/29/25 12:30 Docusate Sodium 100 mg BIDPRN PRN PO 03/29/25 12:30 Acetaminophen 650 mg Q6HP PRN PO 03/29/25 12:30 04/02/25 09:17 650 MG Nitroglycerin 0.4 mg Q5MINP PRN SL 03/29/25 12:30 Morphine Sulfate 2 mg Q30M PRN IV 03/29/25 12:30 UNV Aspirin 81 mg DAILY PO 03/30/25 10:00 04/02/25 09:12 81 MG Patient Own Medication 1 tab DAILY PO 03/30/25 10:00 UNV Patient Own Medication 1 tab DAILY PO 03/30/25 10:00 UNV Patient Own Medication 1 tab DAILY PO 03/30/25 10:00 UNV Carvedilol 12.5 mg BID PO 03/29/25 22:00 04/01/25 09:55 12.5 MG Losartan Potassium 25 mg DAILY PO 03/30/25 10:00 04/01/25 09:55 25 MG Atorvastatin Calcium 40 mg HS PO 03/29/25 22:00 04/01/25 21:28 40 MG Nifedipine 60 mg DAILY PO 03/30/25 10:00 04/01/25 09:55 60 MG Levothyroxine Sodium 25 mcg QAM PO 03/30/25 07:00 04/02/25 06:21 25 MCG Levothyroxine Sodium 50 mcg QAM PO 03/30/25 07:00 04/02/25 06:20 50 MCG Morphine Sulfate 2 mg Q30M PRN IV 03/29/25 13:30 Nystatin 5 ml QID MT 03/29/25 18:00 04/02/25 17:08 5 ML Sodium Chloride 1,000 ml @ 75 mls/hr [id number] IV 03/30/25 11:30 04/02/25 17:11 75 MLS/HR Ertapenem 1 gm/ Sodium Chloride 50 ml @ 100 mls/hr DAILY IV 03/31/25 10:00 04/02/25 09:12 100 MLS/HR Gabapentin 300 mg TID PO 04/01/25 14:00 04/02/25 14:01 300 MG objective General Appearance: alert, no distress HEENT: EOMI, PERRLA, normal external inspect of ears, no icterus, no nasal drainage Neck: no carotid bruit, no jugular venous distention (JVD), no lymphadenopathy Chest: normal thorax Respiratory: clear to auscultation, normal air movement Cardiovascular: regular rate and rhythm, no diastolic murmur, no jugular venous distention (JVD), no rub, no systolic murmur Abdominal: soft, no hepatomegaly, no mass, no splenomegaly, no tenderness Musculoskeletal: no joint tenderness, no swelling Extremities: normal pulses, no calf tenderness, no clubbing, no cyanosis, no edema Skin: no bruising, no jaundice, no rash Neurological: alert, No focal deficit laboratory and microbiology Laboratory Tests 03/30/25 05:28 Test 03/30/25 05:28 Range/Units Serum Glucose 107 H 74-106 mg/dL Problem List -Metabolic encephalopathy Neurology consult, monitoring -Generalized weakness PT eval - Acute cystitis without hematuria IV antibiotics, monitoring - NSTEMI type II Cardiology consult, medication, monitoring - Hyperlipidemia - Hypothyroidism Medication, monitoring - History of CVA with residual weakness Neurology consult, monitoring - Oral thrush Nystatin swish and swallow Assessment/Plan Subjective: Patient is awake and alert. Objective: Patient was cleared for discharge. However, she is more lethargic. Could be contributed to gabapentin that was started three times a day. Patient had been complaining of neuropathy to her lower extremity. She states pain is improved. Patient was admitted for generalized weakness. She states she has not been able to ambulate for two weeks. Bone scan is negative. Plan: Continue current treatment. DC planning back to residential facility. Dietary Evaluation Review Comments: Cardiac diet texture as tolerated collect an updated Lipid profile Expected Outcomes/Goals: meeting 75% of her needs Plan discussed with: Patient, Other KAYLEE COLLINS NP Apr 02, 2025 17:20
--- NOTE | 2025-04-02 21:22 | DVHPN2 ---
Progress Note - Dictate Date Seen: Apr 02, 2025 Medical Necessity Reason Pt with a Central, PICC or Fol: Yes The following are medically ne: Navarrete Catheter Reason for navarrete catheter: Strict I&O Subjective Ms. ciro kaufman is a 83 years old right-handed female with a history of hypertension, dyslipidemia, hypothyroidism, stroke, she came to the [facility] on 03/29/2025 from the [facility] with a chief complaint of weakness for one week. I saw her on 09/08/2023 for stroke (MRI positive), 03/06/2024 for stroke I have seen and examined the patient, talked to her nurse. She is oriented x3, she reports diffuse body pain On physical examination, the tenderness to palpation is intense and diffuse Urinalysis, 03/29/2025: WBC: 320, urine leukocyte esterase: 3+ CBC 03/30/2025: Unremarkable TG/HDL/LDL/HDL, 03/30/2025: 0.5/156/62/90 TG/CHO L/LDL/HDL, 08/2023: 108/102/37/45, 03/06/24:138/128/57/49 Vitamin B12, 08/2023: 308 Folic acid, 09/08/2023: 11.2 TSH, 08/2023: 4.77 KATHLEEN 09/09/2023: No evidence of a valve vegetation was identified. Overall, preserved left ventricular systolic function with left ventricular hypertrophy. Rest of the examination showed a small atrial septal aneurysm with small PFO on bubble study. Carotid Doppler, 03/06/24: 1. No hemodynamically significant stenosis noted in the right carotid system. 2. No hemodynamically significant stenosis noted in the left carotid system Bone scan, 03/31/2025: No scintigraphic evidence of osteoblastic metastases. CT head, March 06, 2024: 1. No acute intracranial abnormality or significant interval change compared to 09/07/2023. 2. Right posterior occipitoparietal lobe encephalomalacia. 3. Moderate cerebral atrophy with chronic small vessel ischemic disease MRI head, 09/07/2023: 1. Multifocal tiny areas of restricted diffusion in both cerebral hemispheres and both cerebellar hemispheres, assisted with acute/subacute ischemia. Embolic phenomena not excluded. 2. Encephalomalacia in the right occipital lobe with peripheral areas of restricted diffusion, which may also be due to areas of acute/subacute ischemia. 3. Posterior fossa arachnoid cyst adjacent to the anterior aspect of the left cerebellar hemisphere. 4. Additional findings as detailed above MRI, head 03/07/2024: 1. No evidence of an acute intracranial abnormality. 2. 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 3. Chronic small vessel ischemic disease.4. Mild left mastoid effusion. vital signs Vital Sign Date Time Temp Pulse Resp B/P (MAP) Pulse Ox O2 Delivery O2 Flow Rate FiO2 04/02/25 16:48 97.9 63 16 106/55 (72) 94 97.9 04/02/25 08:00 Room Air* 0 21 Total Intake and Output 04/01/25 04/01/25 04/02/25 15:00 23:00 07:00 Intake Total 50 ml 1400 ml 1100 ml Output Total 350 ml 650 ml Balance 50 ml 1050 ml 450 ml medications Current Medications Medications Dose Ordered Sig/Froilan Route Start Time Stop Time Status Last Admin Dose Admin Acetaminophen/ Hydrocodone Bitart 1 tab Q4HP PRN PO 03/29/25 12:30 04/02/25 17:16 1 TAB Ondansetron HCl 4 mg Q4HP PRN IV 03/29/25 12:30 Docusate Sodium 100 mg BIDPRN PRN PO 03/29/25 12:30 Acetaminophen 650 mg Q6HP PRN PO 03/29/25 12:30 04/02/25 09:17 650 MG Nitroglycerin 0.4 mg Q5MINP PRN SL 03/29/25 12:30 Morphine Sulfate 2 mg Q30M PRN IV 03/29/25 12:30 UNV Aspirin 81 mg DAILY PO 03/30/25 10:00 04/02/25 09:12 81 MG Patient Own Medication 1 tab DAILY PO 03/30/25 10:00 UNV Patient Own Medication 1 tab DAILY PO 03/30/25 10:00 UNV Patient Own Medication 1 tab DAILY PO 03/30/25 10:00 UNV Carvedilol 12.5 mg BID PO 03/29/25 22:00 04/01/25 09:55 12.5 MG Losartan Potassium 25 mg DAILY PO 03/30/25 10:00 04/01/25 09:55 25 MG Atorvastatin Calcium 40 mg HS PO 03/29/25 22:00 04/02/25 21:05 40 MG Nifedipine 60 mg DAILY PO 03/30/25 10:00 04/01/25 09:55 60 MG Levothyroxine Sodium 25 mcg QAM PO 03/30/25 07:00 04/02/25 06:21 25 MCG Levothyroxine Sodium 50 mcg QAM PO 03/30/25 07:00 04/02/25 06:20 50 MCG Morphine Sulfate 2 mg Q30M PRN IV 03/29/25 13:30 Nystatin 5 ml QID MT 03/29/25 18:00 04/02/25 21:04 5 ML Sodium Chloride 1,000 ml @ 75 mls/hr [id number] IV 03/30/25 11:30 04/02/25 17:11 75 MLS/HR Ertapenem 1 gm/ Sodium Chloride 50 ml @ 100 mls/hr DAILY IV 03/31/25 10:00 04/02/25 09:12 100 MLS/HR Gabapentin 300 mg TID PO 04/01/25 14:00 04/02/25 21:04 300 MG objective General: the patient is well developed and nourished. No acute distress. Obvious tenderness to palpation in bilateral thighs, legs, shoulders, neck, and whole back MENTAL STATUS: HPI SPEECH, LANGUAGE, HIGHER CORTICAL FUNCTION: no aphasia or dysathria. CRANIAL NERVES: Left homonymous hemianopsia. The optic discs were sharp. Pupils are equal, round and reactive. EOMs full and conjugate. No nystagmus. Facial sensation intact in all three divisions bilaterally. Mandibular strength intact. Facial muscles symmetrical and strength intact. SENSATION: Sensation to touch and pinprick is fine, no sensory level MOTOR: Normal tone in the upper and lower extremity. Normal muscle bulk. No fasciculations. No abnormal movements or posturing. Muscle power is: Upper extremities: Rt: 4/5, Lt: 3-4/5. Lower extremities: 3/5 REFLEXES: Deep tendon reflexes are symmetric. No pathological reflexes. CEREBELLAR/COORDINATION: Deferred, but no intentional tremors in the hands GAIT/STATION: deferred laboratory and microbiology Laboratory Tests 03/30/25 05:28 Test 03/30/25 05:28 Range/Units Serum Glucose 107 H 74-106 mg/dL Problem List Weakness in the lower extremities Secondary to local pain Diffuse tenderness in the body, unremarkable bone scan, etiology unclear Chronic multiple strokes, 06/18/2024 Left homonymous hemianopsia secondary to chronic stroke UTI Assessment/Plan Monitoring Supportive treatment Telemetry Aspirin 81 mg daily Lipitor 40 mg daily Up to chair Physical therapy More recommendation per clinical course This medical document was created using an electronic medical record system with [employer] dictation system. Although this document has been carefully reviewed, there may still be some phonetic and typographical errors. These areas are purely typographical due to imperfections of the software programs, and do not reflect any compromise in the patient's medical care Prognosis poor Dietary Evaluation Review Comments: Cardiac diet texture as tolerated collect an updated Lipid profile Expected Outcomes/Goals: meeting 75% of her needs Plan discussed with: Other MARIA D CADE MD Apr 02, 2025 21:22
[2025-04-03] VITALS (7 sets, daily range): BP systolic 106–131; BP diastolic 59–78; PULSE 65–78; RESP 15–17; TEMP 97.6–98.3; O2SAT 92–97
--- NOTE | 2025-04-03 14:09 | DVHDS2 ---
Discharge Summary Date of Admission Mar 29, 2025 at 12:27 Date of Discharge: Apr 03, 2025 Labs/Diagnostic Data: Laboratory Results Test 03/30/25 05:28 03/29/25 13:09 03/29/25 12:45 03/29/25 09:41 White Blood Count 7.9 10^3/uL (4.4-10.8) Red Blood Count 4.15 10^6/uL (4.0-5.20) Hemoglobin 13.3 g/dL (12.2-16.2) Hematocrit 39.2 % (36.0-46.0) Mean Corpuscular Volume 94.4 fL (80.0-100.0) Mean Corpuscular Hemoglobin 32.0 pg (28.0-32.0) Mean Corpuscular Hemoglobin Concent 33.9 g/dL (32.0-36.0) Red Cell Distribution Width 16.5 % (11.8-14.3) Platelet Count 258 10^3/uL (140-450) Mean Platelet Volume 7.9 fL (6.9-10.8) Neutrophils (%) (Auto) 79.3 % (37.0-80.0) Lymphocytes (%) (Auto) 13.5 % (10.0-50.0) Monocytes (%) (Auto) 5.1 % (0.0-12.0) Eosinophils (%) (Auto) 1.5 % (0.0-7.0) Basophils (%) (Auto) 0.6 % (0.0-2.0) Neutrophils # (Auto) 6.3 10 ^3/uL (1.6-8.6) Lymphocytes # (Auto) 1.1 10 ^3/uL (0.4-5.4) Monocytes # (Auto) 0.4 10 ^3/uL (0-1.3) Eosinophils # (Auto) 0.1 10 ^3/uL (0-0.8) Basophils # (Auto) 0 10 ^3/uL (0-0.2) Nucleated Red Blood Cells 0.1 % Sodium Level 144 mmol/L (136-145) Potassium Level 4.3 mmol/L (3.5-5.1) Chloride Level 113 mmol/L (98-107) Carbon Dioxide Level 20 mmol/L (20-31) Anion Gap 11 (5-15) Blood Urea Nitrogen 13 mg/dL (9-23) Creatinine 0.84 mg/dL (0.550-1.02) Glomerular Filtration Rate Calc 68 mL/min (>90) BUN/Creatinine Ratio 15.5 (10.0-20.0) Serum Glucose 107 mg/dL (74-106) Calcium Level 9.8 mg/dL (8.7-10.4) Total Bilirubin 0.5 mg/dL (0.2-1.0) Aspartate Amino Transferase (AST) 156 U/L (13-40) Alanine Aminotransferase (ALT) 62 U/L (7-40) Alkaline Phosphatase 90 U/L (46-116) Total Protein 6.7 g/dL (5.7-8.2) Albumin 3.7 g/dL (3.2-4.8) Troponin I High Sensitivity 236 ng/L (</=34) Urine Color Light-orange (Yellow) Urine Clarity Turbid (Clear) Urine pH 6.0 (5.0-9.0) Urine Specific [place] 1.018 (1.001-1.035) Urine Protein Negative (Negative) Urine Ketones Negative (Negative) Urine Blood Negative /uL (Negative) Urine Nitrite Negative (Negative) Urine Bilirubin Negative (Negative) Urine Urobilinogen Normal mg/dL (Negative) Urine Leukocyte Esterase 3+ /uL (Negative) Urine RBC 11 /hpf (0 - 4) Urine Microscopic WBC 320 /HPF (0-5) Urine Squamous Epithelial Cells Few /hpf (<5) Urine Bacteria Few /hpf (None Seen) Urine Mucus Few (None Seen) Urine Glucose Normal mg/dL (Normal) B-Type Natriuretic Peptide 12.78 pg/mL (0-100) Other Laboratory Tests 03/30/25 05:28 Brief Hx & Hospital Course: Patient was admitted on 03/29/2025 for generalized weakness and UTI. Patient also had complaints of neuropathy to her legs. Gabapentin was started however initial dose made patient too lethargic. Gabapentin was adjusted to 100 mg p.o. 3 times daily. Patient will [facility] at [facility] for rehab for her deconditioned state. She was seen by cardiology. She will continue aspirin and Plavix. She was given antibiotic course in the hospital. No need for additional antibiotics outpatient. The patient received proper medical treatment and medications. Vital signs, Imaging and Laboratory Work was monitored daily. All consults recommendations were followed as provided. There were no complaints or new complaints upon discharge, all questions and concerns were answered. Patient was advised to return to the ER or call 911 if any headaches, dizziness, shortness of breath, chest pain, bleeding, fevers, or worsening of medical condition. Patient/Family was counseled about treatment plan, medications, possible side effects, patient verbalized understanding. All questions were answered to the best of my ability. The patient symptoms improved and they are okay to be DC. Condition at Discharge: Stable Final Diagnosis/Problems List Neuropathy Metabolic encephalopathy Generalized weakness Acute cystitis without hematuria NSTEMI type II Hyperlipidemia Hypothyroidism History of CVA with residual weakness Oral thrush Discharge Disposition: [facility] Facility Discharge Instruct/Medications Diet: Cardiac 2g Na,low cholest Activity: No Restrictions, As Tolerated Follow Up/Referral: pcp 1 week Discharge Statement: "Patient was advised to return to the ER or call 911 if any headaches, dizziness, shortness of breath, chest pain, abdominal pain, bleeding, fevers, or worsening of medical condition. Patient was counseled about treatment plan, medications, possible side effects, patientverbalized understanding. All questions were answered to the best of my ability. This discharge took greater then 30 minutes in planning, reviewing documentation, counseling the patient, and discussing with other team members." ASSESSMENT ASSESSMENT Assessment Generslized weakness Neuropathy KAYLEE COLLINS NP Apr 03, 2025 14:09
[2025-04-03] MEDS ORDERED: GABAPENTIN 100 MG CAP PO SCH (22:00)
--- NOTE | 2025-04-04 12:44 | ECG ---
[facility] Test Date: 2025-03-29 Test Time: 16:13:50 Pat Name: KATHI PRIEST Department: ER Room: 0206T A Gender: F [employer]iting Coordinator: CAILIN : 1940 Requested By: YAMILET NEWTON Order Number: [id number] Reading MD: Guanakito Oh Measurements Intervals [place] Rate: 70 P: 54 KS: 147 QRS: 1 QRSD: 90 T: 41 QT: 417 QTc: 450 Interpretive Statements Sinus rhythm Abnormal R-wave progression, early transition Electronically Signed On 04-05-2025 17:24:37 PDT by Guanakito Oh Please click the below link to view image of tracing.
== END 2025-04-03 17:47 | DRG 689 ==
LOC: EDBD 09:25 → ER 09:25 → OVERFLOW 12:27 → TELE-CENTR 19:13
PROVIDERS: ADMIT Nurse Practitioner; ATTEND Nurse Practitioner
DX: N30.00 Acute cystitis without hematuria (principal); G93.41 Metabolic encephalopathy; I21.A1 Myocardial infarction type 2; B37.0 Candidal stomatitis; I69.354 Hemiplegia and hemiparesis following cerebral infarction affecting left non-dominant side; G62.9 Polyneuropathy, unspecified; E86.0 Dehydration; R79.89 Other specified abnormal findings of blood chemistry; F10.10 Alcohol abuse, uncomplicated; Y90.9 Presence of alcohol in blood, level not specified; I10 Essential (primary) hypertension; E78.5 Hyperlipidemia, unspecified; E03.9 Hypothyroidism, unspecified; H53.462 Homonymous bilateral field defects, left side; F17.200 Nicotine dependence, unspecified, uncomplicated; Z79.82 Long term (current) use of aspirin; Z79.899 Other long term (current) drug therapy; Z90.49 Acquired absence of other specified parts of digestive tract; Z90.710 Acquired absence of both cervix and uterus; Z82.49 Family history of ischemic heart disease and other diseases of the circulatory system; Z79.02 Long term (current) use of antithrombotics/antiplatelets
CPT/HCPCS: 36415; 71045; 78306; 80048; 80053; 81001; 83880; 84484; 85025; 87081; 87086; 93005; 96365; 97163; G0378; J1335